=== PATIENT | female | born 1955 | race Caucasian/White ===

== ENCOUNTER 2019-05-29 12:08 | Outpatient (CLI) | payer MEDICARE, MEDICAID, SELFPAY ==
--- NOTE | 2019-05-29 12:21 | XR_ITS ---
WS: [id number] XR chest 2V* [id number] REASON FOR EXAM: sob / chronic cough FINDINGS: The heart mediastinum interfaces are normal. There is arteriosclerotic changes seen in the arch the aorta. Calcified granulomas are noted in the right mediastinum and the nodule in the apex of the right upper lung is calcified consistent with a granuloma. The lung noonan are well aerated. There is no definite pneumonia, pleural effusion, pulmonary edema, mass effect, are pneumothorax. The trachea is mildly narrowed at the level of the T4 vertebra. As above the bifurcation. XR/XR chest 2V* [id number] IMPRESSION: The trachea at the T4 level appears to be slightly narrowed. Granulomas are seen off the hilum and right upper lung.
== END 2019-05-29 12:09 | disposition home or self-care (01) ==
LOC: RAD 12:14
PROVIDERS: Family Provider Family Medicine; PCP Family Medicine; Visit Provider Family Medicine
DX: J84.10 Pulmonary fibrosis, unspecified (principal); R06.02 Shortness of breath; R05 Cough
CPT/HCPCS: 71046

== ENCOUNTER 2019-07-30 14:32 | Outpatient (CLI) | payer MEDICARE, MEDICAID, SELFPAY ==
--- NOTE | 2019-07-30 14:30 | CT_ITS ---
WS: [id number] CT CHEST WITH INTRAVENOUS CONTRAST HISTORY: chronic cough TECHNIQUE: Contiguous 5 mm axial imaging performed on the thorax. Coronal and sagittal reformats are submitted. All CT scans at [facility] use at least one of these dose optimization techniq ues: automated exposure control; mA and/or kV adjustment per patient size (includes targeted exams wh ere dose is matched to clinical indication); or iterative reconstruction. CONTRAST: Omnipaque 300; 95 mL IV. DLP: 865.07 mGycm COMPARISON: 10/17/2017 Lungs and central airway: No pulmonary mass or nodule. Very slight linear atelectasis in the RIGHT mi ddle lobe and along the RIGHT superior major fissure. Pleura: Normal. No pleural effusion. Heart and pericardium: Normal size heart. No pericardial effusion. Mediastinum and tisha: No enlarging lymph nodes. Benign calcified lymph nodes at the RIGHT hilum. Vessels: Normal size aortic and pulmonary artery. No coronary artery calcifications. Chest wall and lower neck: Prior LEFT mastectomy. No axillary lymph nodes. Upper abdomen: Extensive granulomatous changes in the liver and spleen have been stable over multiple prior studies. There is decreased attenuation in the liver from hepatic steatosis. No adrenal mass. Small hiatal hernia. Osseous structures: Mild degenerative changes in the thoracic spine. No osteoblastic or osteolytic shena ne disease. CT/CT chest w con* [id number] IMPRESSION: 1. No pneumonia or pulmonary nodules. 2. Subsegmental atelectasis at the RIGHT middle lobe and along the RIGHT major fissure. 3. Prior LEFT mastectomy. 4. Prior granulomatous disease with extensive calcifications in the liver and spleen. 5. Hepatic steatosis.
[2019-07-30 15:06] LABS: Blood Urea Nitrogen 12 mg/dL (8-23)
[2019-07-30] MEDS: iohexol 300 mg/mL 100 mL Btl IV (15:16)
== END 2019-07-30 14:33 | disposition home or self-care (01) ==
LOC: RADWPI 14:36
PROVIDERS: Family Provider Family Medicine; PCP Family Medicine; Visit Provider Family Medicine
DX: R05 Cough (principal); J98.11 Atelectasis; Z90.12 Acquired absence of left breast and nipple; K76.0 Fatty (change of) liver, not elsewhere classified
CPT/HCPCS: 71260; 82565; 84520; Q9967

== ENCOUNTER → 2019-08-20 11:15 | Outpatient (BNVA) | payer MEDICARE, MEDICAID, SELFPAY | PROVIDERS: Family Provider Family Medicine; PCP Family Medicine; Visit Provider Family Medicine | DX: Z13.6 Encounter for screening for cardiovascular disorders (principal); E55.9 Vitamin D deficiency, unspecified; K52.9 Noninfective gastroenteritis and colitis, unspecified; Z86.39 Personal history of other endocrine, nutritional and metabolic disease; F17.219 Nicotine dependence, cigarettes, with unspecified nicotine-induced disorders | CPT/HCPCS: 80053; 80061; 82306; 85025 ==

== ENCOUNTER → 2019-09-16 15:31 | Outpatient (BNVA) | payer MEDICARE, MEDICAID, SELFPAY | PROVIDERS: Family Provider Family Medicine; PCP Family Medicine; Visit Provider Family Medicine | DX: D64.9 Anemia, unspecified (principal) | CPT/HCPCS: 83540; 83550 ==

== ENCOUNTER 2020-06-23 14:20 | Emergency (ER) | payer MEDICARE, MEDICAID, SELFPAY ==
[2020-06-23 14:35] VITALS: BP 131/45; PULSE 78; RESP 19; TEMP 36.5; O2SAT 100; BMI 29.1
--- NOTE | 2020-06-23 15:02 | XR_ITS ---
WS: [id number] Portable AP upright chest, 06/23/2020 Clinical Data: reduced breath sounds Comparison: PA and lateral chest, 06/08/2019. Findings: No nodules, masses or effusions are seen. The heart is normal. The pulmonary vascularity is not increased. No pneumonia or pneumothorax is seen. There is a calcified granuloma in the right upp er lobe. There are calcified granulomas in both tisha. The aortic arch and descending aorta show calci fication and tortuosity. There is a monitor lead on the chest wall. XR/XR chest 1V portable [id number] Impression: Atherosclerosis.
--- NOTE | 2020-06-23 15:03 | ECG_ITS ---
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
[2020-06-23 15:50] VITALS: BP 127/47; PULSE 98; RESP 15; O2SAT 95
[2020-06-23 16:07] LABS: Basophils # 0.1 10^3/uL (0.0-0.1); Basophils % 0.4 %; Eosinophils # 0.1 10^3/uL (0.0-0.8); Eosinophils % 0.9 %; Hematocrit 40.1 % (37.0-47.0); Hemoglobin 12.3 g/dL (11.5-15.3); Lymphocytes % 14.7 %; Mean Corpuscular HGB Conc 30.7 g/dL (30.0-36.0); Mean Corpuscular Hemoglobin 24.9 pg (28.0-34.0); Mean Corpuscular Volume 81.2 fL (81-99); Mean Platelet Volume 10.6 fL (7.4-10.4); Monocytes # 0.6 10^3/uL (0.2-0.9); Monocytes % 4.3 %; Neutrophils % 79.4 %; Nucleated Red Blood Cells % 0 %; Platelet Count 457 10^3/cmm (130-400); Red Blood Count 4.94 10^6/uL (4.1-5.3); Red Cell Distribution Width 19.2 % (12.1-15.1); White Blood Count 13.6 10^3/uL (4.0-10.0)
[2020-06-23 16:22] LABS: Troponin(5th) Baseline 10 ng/L (0-10)
[2020-06-23 16:25] LABS: Alanine Aminotransferase 11 U/L (0-33); Albumin Level 4.5 g/dL (3.5-5.2); Alkaline Phosphatase 100 IU/L (35-105); Anion Gap 19.5 (5-19); Aspartate Amino Transferase 17 U/L (0-32); Blood Urea Nitrogen 12 mg/dL (8-23); Calcium 9.5 mg/dL (8.5-10.5); Carbon Dioxide 22 mmol/L (22-29); Chloride 102 mmol/L (98-107); Globulin 3.1 g/dL (1.3-4.6); Glomerular Filtration Rate 123.4 mL/min (90-130); Glucose 182 mg/dL (65-115); Lipase 77 U/L (13-60); Osmolality Calculated 292 mOsm/kg (285-295); Potassium 4.5 mmol/L (3.5-5.1); Sodium 139 mmol/L (136-145); Total Bilirubin 0.3 mg/dL (0.15-1.2); Total Protein 7.6 g/dL (6.6-8.7)
[2020-06-23] MEDS: ondansetron 2 mg/ML SDV 2 mL 4 MG IVP (16:46)
[2020-06-23] MEDS: sodium chloride 0.9% 1,000 ML 999 ML IV (16:47)
--- NOTE | 2020-06-23 17:13 | CTR_ITS ---
PROCEDURE INFORMATION: Exam: CT Abdomen And Pelvis With Contrast Exam date and time: 06/23/2020 5:14 PM Age: 65 years old Clinical indication: Abdominal pain; Prior surgery; Surgery type: Hyst/tubal TECHNIQUE: Imaging protocol: Computed tomography of the abdomen and pelvis with contrast. Radiation optimization: All CT scans at this facility use at least one of these dose optimization techniques: automated exposure control; mA and/or kV adjustment per patient size (includes targeted exams where dose is matched to clinical indication); or iterative reconstruction. Contrast material: OMNI 300; Contrast volume: 95 ml; Contrast route: INTRAVENOUS (IV); COMPARISON: No relevant prior studies available. RADIATION DOSE METRICS: Total DLP (mGy-cm): 1582.46 FINDINGS: Liver: Extensive calcified liver granulomas. No liver mass. No liver enlargement. Gallbladder and bile ducts: Normal. No calcified stones. No ductal dilation. Pancreas: Normal. No ductal dilation. Spleen: Extensive splenic granulomas. No splenomegaly. Adrenal glands: Normal. No mass. Kidneys and ureters: Incidental finding of small simple right renal lower pole partially exophytic cortical cyst. No hydronephrosis. No perinephric inflammation. Scattered left renal parenchymal calcifications. Stomach and bowel: Unremarkable. No obstruction. No mucosal thickening. Appendix: No evidence of appendicitis. Intraperitoneal space: Unremarkable. No free air. No significant fluid collection. Vasculature: Moderate volume scattered atherosclerotic wall plaque of abdominal aorta. No aneurysm. No dissection. No vascular occlusion. Lymph nodes: Unremarkable. No enlarged lymph nodes. Urinary bladder: Unremarkable as visualized. Reproductive: Hysterectomy. Bones/joints: Unremarkable. No acute fracture. Grade 1 L4-L5 spondylolisthesis secondary to facet joint arthritis. Moderate severity disc disease at L4-L5. Soft tissues: Unremarkable. CT/CT abdomen pelvis w con* [id number] IMPRESSION: 1. No acute pathology in the abdomen or pelvis identified. 2. Healed granulomatous disease. COMMENTS: Consistent with the [employer]'s Incidental Findings Committee white paper (J Am Tala Radiol 2018): Any incidental renal lesion less than 1 cm or classified as too small to characterize, or any incidental cystic renal lesion characterized as simple-appearing, is likely benign. No follow-up imaging is recommended for these lesions per consensus recommendations based on imaging criteria. Radiation Dose CTDIVOL = (mGy): DLP = 1582.46 (mGy-cm)
[2020-06-23] MEDS: iohexol 300 mg/mL 100 mL Btl IV (17:26)
[2020-06-23 17:38] LABS: Lactate (Lactic Acid level) 1.6 mmol/L (0.5-2.2)
--- NOTE | 2020-06-23 18:05 | ED_ITS ---
HPI - Nausea/Vomiting/Diarrhea General: Chief complaint: Nausea/Vomiting/Diarrhea Stated complaint: N/V/ WEAK Time Seen by Provider: 06/23/20 14:33 History of Present Illness: HPI Narrative: The patient is a 65-year-old female who comes to the ER complaining of nausea, vomiting, diarrhea, and abdominal cramping since last night. She was given 4 mg of Zofran by EMS which did help some. EMS reported that she was pale and diaphoretic on their arrival. When asked if she had bad food she says she cooked her food and left it out for 6 hours prior to eating it so she is concerned that that may be what is causing her food poisoning. MD elicited complaint: nausea, vomiting, diarrhea and abdominal pain Onset (ago): hour(s) (12) Description of vomiting: food contents Description of diarrhea: watery Associated nausea: Yes Associated abdominal pain: Yes Location of pain: Diffuse Radiation: diffuse Pain consistency: intermittent Severity: moderate Quality: cramping Exacerbating factors: eating Relieving factors: none Associated symtoms: Reports no associated symptoms and nausea; Denies anxiety, change in vision, chest pain, dizziness, fatigue, headache(s) or palpitations Review of Systems General: Reports: 10 or more systems reviewed and unremarkable except in HPI and below Const: Denies: fatigue Eyes: Denies: change in vision, blurry vision or eye redness ENMT: Denies: throat pain, swelling of lips/tongue, ear or mastoid pain or nasal congestion Card: Denies: chest pain, palpitations, irregular heart rhythm, edema, dyspnea on exertion or orthopnea Resp: Denies: dyspnea, productive cough or non-productive cough GI: Reports: abdominal pain, nausea, vomiting and diarrhea : Denies: flank pain, difficulty voiding, urinary frequency or urinary urgency Musc: Denies: neck pain, back pain, extremity pain, joint pain, joint redness, limited range of motion or muscle weakness Skin/Breast: Denies: rash, pruritus, erythema, skin pain or skin tenderness Neuro: Denies: headache(s), numbness in extremities, weakness in extremities, sensory changes, difficulty walking, dizziness, confusion or Slurred speech present Psych: Denies: anxiety or depression Endo: Denies: polyuria All/Imm: Denies: urticaria, throat swelling or tongue swelling PFSH ED PFSH: Medical History Breast cancer Chronic diarrhea DDD (degenerative disc disease), cervical Depression Essential hypertension GERD (gastroesophageal reflux disease) Hepatitis C Hyperlipidemia Surgical History H/O tubal ligation H/O: hysterectomy History of mastectomy, total History of thyroid surgery History of tonsillectomy Family History Other Cancer Social History Smoking and tobacco status: current every day smoker cigarettes Packs smoked per day: 0.5 Years cigarettes smoked: 25 Second hand smoke exposure: Yes Smoking risk assessment/counseling performed?: Yes Alcohol intake: never Lives independently: Yes Household members: significant other and family Marital status: Current occupational status: disabled History of recent travel: No Current gender identity: Female Physical Exam Const: COMMON NORMALS: no acute distress, average body habitus, patient oriented x3, no limitations, healthy appearing, alert and well nourished GENERAL APPEARANCE: cooperative, comfortable, well kempt and well developed ORIENTATION/CONSCIOUSNESS: Yes awake, Yes oriented to person, Yes oriented to place and Yes oriented to time HENMT: COMMON NORMALS: normocephalic, external ears normal and Normal external nose present HEAD & SCALP: normal to inspection and normocephalic NOSE: Normal external nose present EXTERNAL EAR: Yes external ears normal MOUTH: Normal oral and palatal mucosa present THROAT: posterior oropharynx normal Eye: COMMON NORMALS: Equal, round and reactive pupils present and EOMs intact bilaterally GENERAL EYE: appearance normal, both eyes and all related structures PUPIL: Yes Equal, round and reactive pupils present Neck/C-Spine: COMMON NORMALS: full ROM, no lymphadenopathy, no meningeal signs and no JVD GENERAL: Yes normal visual inspection Lymph: LYMPHATIC: no lymphadenopathy noted Chest: COMMONS NORMALS: normal inspection of the chest and normal palpation of entire chest wall Resp: COMMON NORMALS: normal respiratory effort, No retractions, No use of accessory muscles, clear to auscultation bilaterally and percussion normal EFFORT & INSPECTION: Yes able to speak in complete sentences AUSCULTATION: clear to auscultation bilaterally PERCUSSION: percussion normal Cardio: COMMON NORMALS: no JVD, regular rate, regular rhythm, S1 normal heart sound present, S2 normal heart sound present and Peripheral pulses 2+ throughout RATE: regular rate RHYTHM: regular rhythm HEART SOUNDS: S1 normal heart sound present and S2 normal heart sound present PERIPHERAL PULSES: Peripheral pulses 2+ throughout GI: COMMON NORMALS: Normal to inspection, nondistended, normoactive bowel sounds present, Soft to palpation and no masses INSPECTION: Yes normal to inspection PALPATION: Yes Soft to palpation OTHER: Mild tenderness diffusely. : COMMON NORMALS: Yes no CVA tenderness BLADDER/KIDNEY EXAM: Yes no CVA tenderness Back/Pelvis: COMMON NORMALS: no CVA tenderness, thoracic and lumbar spine normal to inspection, no thoracic nor lumbar tenderness and thoraco-lumbar ROM normal Extremity: COMMON NORMALS: normal to inspection, full ROM, capillary refill normal, no joint enlargement and no pedal edema GENERAL: Yes normal exam except as noted Neuro: COMMON NORMALS: patient oriented x3, CN's II-XII intact bilaterally, moves all extremities, no focal motor deficits, no sensory deficits noted and gait normal SENSORIUM/ORIENTATION: Yes alert, Yes oriented to person, Yes oriented to place and Yes oriented to time MENINGEAL SIGNS: Yes no meningeal signs Psych: COMMON NORMALS: mental status grossly normal, Normal thought process present, cooperative, normal affect and speech normal APPEARANCE: Yes well kempt ATTITUDE: Yes calm SPEECH: Yes normal speech THOUGHT PROCESS: Normal thought process present Skin: COMMON NORMALS: no rashes or lesions noted GENERAL SKIN EXAM: no rashes or lesions noted Course Vital Signs: Vital signs: Vital Signs Temperature 97.7 F 06/23/20 14:35 Pulse Rate 98 06/23/20 15:50 Respiratory Rate 15 06/23/20 15:50 Blood Pressure 127/47 06/23/20 15:50 Pulse Oximetry 95 06/23/20 15:50 MDM - Nausea/Vomiting/Diarrhea MDM Narrative: Medical decision making narrative: Patient came in with nausea vomiting and diarrhea since yesterday evening after eating food that had been sitting out for 6 hours. Likely food poisoning. She was given IV fluids, Zofran which helped with her symptoms. Mild leukocytosis as well. She is stable for discharge with oral Zofran. Return to the ER with worsening symptoms otherwise primary care doctor in a couple days. Lab Data: Labs: Lab Results 06/23/20 06/23/20 06/23/20 Range/Units 14:00 14:00 14:00 WBC 13.6 H (4.0-10.0) 10^3/ uL RBC 4.94 (4.1-5.3) 10^6/u L Hgb 12.3 (11.5-15.3) g/dL Hct 40.1 (37.0-47.0) % MCV 81.2 (81-99) fL MCH 24.9 L (28.0-34.0) pg MCHC 30.7 (30.0-36.0) g/dL RDW 19.2 H (12.1-15.1) % Plt Count 457 H (130-400) 10^3/c mm MPV 10.6 H (7.4-10.4) fL Neut % (Auto) 79.4 % Lymph % (Auto) 14.7 % [place] % (Auto) 4.3 % Eos % (Auto) 0.9 % Baso % (Auto) 0.4 % Neut # (Auto) 10.80 H (1.8-7.7) 10^3/u L Lymph # (Auto) 2.0 (0.8-4.8) 10^3/u L [place] # (Auto) 0.6 (0.2-0.9) 10^3/u L Eos # (Auto) 0.1 (0.0-0.8) 10^3/u L Baso # (Auto) 0.1 (0.0-0.1) 10^3/u L Nucleated RBC % (a uto) 0 % Nucleated RBCs # 0.0 /100WBC Sodium 139 (136-145) mmol/L Potassium 4.5 (3.5-5.1) mmol/L Chloride 102 (98-107) mmol/L Carbon Dioxide 22 (22-29) mmol/L Anion Gap 19.5 H (5-19) BUN 12 (8-23) mg/dL Creatinine 0.5 (0.5-0.9) mg/dL GFR Calculation 123.4 (90-130) mL/min Glucose 182 H (65-115) mg/dL Calculated Osmolal ity 292 (285-295) mOsm/k g Lactate (0.5-2.2) mmol/L Calcium 9.5 (8.5-10.5) mg/dL Total Bilirubin 0.3 (0.15-1.2) mg/dL AST 17 (0-32) U/L ALT 11 (0-33) U/L Alkaline Phosphata se 100 (35-105) IU/L Troponin T Baselin e 10 (0-10) ng/L Total Protein 7.6 (6.6-8.7) g/dL Albumin 4.5 (3.5-5.2) g/dL Globulin 3.1 (1.3-4.6) g/dL Lipase 77 H (13-60) U/L 06/23/20 Range/Units 17:00 WBC (4.0-10.0) 10^3/ uL RBC (4.1-5.3) 10^6/u L Hgb (11.5-15.3) g/dL Hct (37.0-47.0) % MCV (81-99) fL MCH (28.0-34.0) pg MCHC (30.0-36.0) g/dL RDW (12.1-15.1) % Plt Count (130-400) 10^3/c mm MPV (7.4-10.4) fL Neut % (Auto) % Lymph % (Auto) % [place] % (Auto) % Eos % (Auto) % Baso % (Auto) % Neut # (Auto) (1.8-7.7) 10^3/u L Lymph # (Auto) (0.8-4.8) 10^3/u L [place] # (Auto) (0.2-0.9) 10^3/u L Eos # (Auto) (0.0-0.8) 10^3/u L Baso # (Auto) (0.0-0.1) 10^3/u L Nucleated RBC % (a uto) % Nucleated RBCs # /100WBC Sodium (136-145) mmol/L Potassium (3.5-5.1) mmol/L Chloride (98-107) mmol/L Carbon Dioxide (22-29) mmol/L Anion Gap (5-19) BUN (8-23) mg/dL Creatinine (0.5-0.9) mg/dL GFR Calculation (90-130) mL/min Glucose (65-115) mg/dL Calculated Osmolal ity (285-295) mOsm/k g Lactate 1.6 (0.5-2.2) mmol/L Calcium (8.5-10.5) mg/dL Total Bilirubin (0.15-1.2) mg/dL AST (0-32) U/L ALT (0-33) U/L Alkaline Phosphata se (35-105) IU/L Troponin T Baselin e (0-10) ng/L Total Protein (6.6-8.7) g/dL Albumin (3.5-5.2) g/dL Globulin (1.3-4.6) g/dL Lipase (13-60) U/L Discharge Plan Discharge Patient Disposition: Home Clinical Impression: Food poisoning Condition: Stable Prescriptions: New ondansetron 4 mg tablet,disintegrating 4 mg PO Q8H 4 Days Qty: 12 RF: 0 No Action (DME) BRA WITH LEFT PROSTHESIS See Rx Instructions .Route .MEDSUPPLY Qty: 2 RF: 1 Spiriva Respimat 2.5 mcg/actuation mist 2 inh inhalation DAILY RF: 0 albuterol sulfate [ProAir HFA] 90 mcg/actuation HFA aerosol inhaler 2 puff INHALATION Q6H PRN (Reason: shortness of breath or wheezing) 30 Days Qty: 18 RF: 3 Discharge Orders: Discharge ED (Routine); Ordered 06/23/20 Ordered By: Fredrick Funes Referrals: Amee Bond DO [Primary Care Provider] - Discharge Diet: Advance as tolerated Discharge Activity: Resume usual activity Patient Instructions: Gastroenteritis (ED), Opioid Safety Activity Restrictions/Additional Instructions: You likely have food poisoning. Please take Zofran as directed to help with your nausea and return to the ER with worsening symptoms. Try to drink lots of fluids at home and use Zofran to help you do so. Throughout the rest of the food if you have not already done so. Follow-up with your primary care physician in a couple days to monitor improvement of your symptoms. Coding Level of Care Code ED Cook Fry for Xavi Fwd Exam Comprehensive
[2020-06-23 18:26] VITALS: BP 113/93; PULSE 89; RESP 16; O2SAT 97
== END 2020-06-23 18:27 | disposition home or self-care (01) ==
PROVIDERS: Emergency Provider Family Medicine; PCP Family Medicine
DX: A05.9 Bacterial foodborne intoxication, unspecified (principal); Z85.3 Personal history of malignant neoplasm of breast; I10 Essential (primary) hypertension; Z86.19 Personal history of other infectious and parasitic diseases; E78.5 Hyperlipidemia, unspecified; F17.210 Nicotine dependence, cigarettes, uncomplicated
CPT/HCPCS: 36415; 71045; 74177; 80053; 83605; 83690; 84484; 85025; 93005; 96361; 96374; 99284; J2405; J7030; Q9967

== ENCOUNTER → 2021-01-29 18:00 | Outpatient (BNVA) | payer MEDICARE, MEDICAID, SELFPAY | PROVIDERS: PCP Family Medicine; Visit Provider Nurse Practitioner | DX: Z20.822 Contact with and (suspected) exposure to COVID-19 (principal) | CPT/HCPCS: 87635 ==

== ENCOUNTER 2023-09-17 18:29 | Emergency (ER) | payer MEDICARE, MEDICAID, SELFPAY ==
--- NOTE | 2023-09-17 18:30 | XRR_ITS ---
PROCEDURE INFORMATION: Exam: XR Right Shoulder Exam date and time: 09/17/2023 6:42 PM Age: 68 years old Clinical indication: Pain; Shoulder; Right; Additional info: Injury TECHNIQUE: Imaging protocol: Radiologic exam of the right shoulder. Views: 2 or more views. COMPARISON: CR XR chest 1V portable [id number] 06/23/2020 3:06 PM FINDINGS: Bones/joints: Mild narrowing of the glenohumeral joint space with minimal subchondral sclerosis without significant osteophyte formation. There is mild narrowing of the acromiohumeral interval. No acute fracture or subluxation. Lungs: Benign calcified right upper lung granulomata. Soft tissues: Normal. XR/XR shoulder RT min 2V* [id number] IMPRESSION: 1. No acute fracture or subluxation. 2. Moderate chronic degenerative changes of the glenohumeral joint.
[2023-09-17 18:50] VITALS: BP 130/57; PULSE 80; RESP 16; TEMP 36.6; O2SAT 98
[2023-09-17 19:10] VITALS: BP 144/77; PULSE 77; RESP 16; O2SAT 97
--- NOTE | 2023-09-17 19:10 | ED_ITS ---
HPI - Extremity Problem General: Chief complaint: Extremity Injury, Upper Stated complaint: Right Shoulder Time Seen by Provider: 09/17/23 18:48 Source: patient Mode of arrival: ambulatory Limitations: no limitations History of Present Illness: 68-year-old female who states that she h ad injured her right shoulder a year ago trying to move her and she has been followed with her PCP who thought she may have a torn rotator cuff states she been doing physical therapy states she had been increasing with therapy last week did more exercise and felt a pop in that shoulder she does have some bruising increased pain rates the pain a 4 out of 10 worse with movement. Associated symptoms: Deny chest pain, fever(s) or rash Review of Systems Const: Denies: fever(s), chills, body aches or change in appetite ENMT: Denies: throat pain or dental pain Card: Denies: chest pain Resp: Denies: dyspnea GI: Denies: abdominal pain, nausea, vomiting or diarrhea Musc: Reports: extremity pain; Denies: neck pain or back pain Skin/Breast: Denies: rash Neuro: Denies: headache(s) PFSH ED PFSH: Medical History DDD (degenerative disc disease), cervical Depression Chronic diarrhea GERD (gastroesophageal reflux disease) Breast cancer Essential hypertension Hyperlipidemia Hepatitis C Surgical History H/O: hysterectomy History of tonsillectomy History of mastectomy, total H/O tubal ligation History of thyroid surgery Family History Other Cancer Social History Smoking and tobacco/nicotine status: never used tobacco/nicotine Second hand smoke exposure: Yes Alcohol intake: never Substance/Drug Use: never Lives independently: Yes Household members: significant other and family Marital status: Current occupational status: disabled Do you think of yourself as: Straight/Heterosexual Current gender identity: Female Physical Exam Const: COMMON NORMALS: no acute distress, patient oriented x3 and healthy appearing HENMT: COMMON NORMALS: normocephalic and atraumatic HEAD & SCALP: normocephalic and atraumatic Eye: COMMON NORMALS: conjunctivae normal CONJUNCTIVA: Yes conjunctivae normal Neck/C-Spine: COMMON NORMALS: full ROM Chest: COMMONS NORMALS: normal inspection of the chest Resp: COMMON NORMALS: normal respiratory effort Cardio: COMMON NORMALS: regular rate RATE: regular rate Extremity: NARRATIVE EXTREMITY EXAM: Tenderness noted to right shoulder does have some slight bruising of the shoulder distal pulses intact Neuro: COMMON NORMALS: patient oriented x3, moves all extremities and no focal motor deficits Psych: COMMON NORMALS: mental status grossly normal, Normal thought process present and cooperative THOUGHT PROCESS: Normal thought process present Skin: COMMON NORMALS: no rashes or lesions noted and no wounds GENERAL SKIN EXAM: no rashes or lesions noted Course Vital Signs: Vital signs: Vital Signs Temperature 97.8 F 09/17/23 18:50 Pulse Rate 77 09/17/23 19:10 Respiratory Rate 16 09/17/23 19:10 Blood Pressure 144/77 09/17/23 19:10 Pulse Oximetry 97 09/17/23 19:10 Oxygen Delivery Me thod Room Air 09/17/23 19:10 MDM - Extremity (Nontraumatic) Medical Decision Making Patient presents here with right shoulder pain her exam showed no signs of blood clot distal pulses were intact here x-ray shows no fracture she could have a rotator cuff injury we will get her follow-up with orthopedics return if worsening. XR interpretation done by ED provider, pending radiology final review ED provider radiology interpretation(s): X-ray right shoulder no acute fracture Discharge Plan Discharge Patient Disposition: Home Clinical Impression: Right shoulder pain Condition: Stable Prescriptions: No Action (DME) BRA WITH LEFT PROSTHESIS See Rx Instructions .Route .MEDSUPPLY Qty: 2 1RF Rx Instructions: As directed Spiriva Respimat 2.5 mcg/actuation mist 2 inh inhalation DAILY albuterol sulfate [ProAir HFA] 90 mcg/actuation HFA aerosol inhaler 2 puff INHALATION Q6H PRN (Reason: shortness of breath or wheezing) 30 Days Qty: 18 3RF Discharge Orders: Discharge ED (Routine); Ordered 09/17/23 Ordered By: Dylan Bear Referrals: Robert Alonzo MD [Primary Care Provider] - Yeni Azul MD [Physician] - 4-7 days Discharge Diet: Advance as tolerated Discharge Activity: Resume usual activity Patient Instructions: Shoulder Sprain (ED) Coding Level of Care Code ED Hydroelectric Machinery Mechanic for Xavi Malhotra
[2023-09-17] MEDS: naproxen 500 mg Tablet PO (19:12)
--- NOTE | 2023-09-18 11:35 | DCPLANNER ---
message sent to ortho for er f/u
== END 2023-09-17 19:38 | disposition home or self-care (01) ==
PROVIDERS: Emergency Provider Emergency Medicine; PCP Family Medicine
DX: M25.511 Pain in right shoulder (principal); Z85.3 Personal history of malignant neoplasm of breast; I10 Essential (primary) hypertension; E78.5 Hyperlipidemia, unspecified; Z86.19 Personal history of other infectious and parasitic diseases; Z77.22 Contact with and (suspected) exposure to environmental tobacco smoke (acute) (chronic)
CPT/HCPCS: 73030; 99283

== ENCOUNTER 2023-10-17 09:20 | Outpatient (CLI) | payer MEDICARE, MEDICAID, SELFPAY ==
--- NOTE | 2023-10-17 09:23 | MR_ITS ---
WS: [id number] MRI RIGHT SHOULDER NONCONTRAST TECHNIQUE: Sagittal T2, coronal T1, T2 and proton density imaging. Axial gradient PDE imaging. CLINICAL INFORMATION: R SHOULDER TENDINITIS COMPARISON: MRI 2014 FINDINGS: Advanced degenerative arthritis AC joint with near complete loss of the subacromial space. Small amou nt of fluid and edema at the AC joint. Small amount of subacromial subdeltoid fluid. Cystic degenerat humza changes of the greater tuberosity with dominant subchondral cystic lesion measuring 1.6 x 1.1 cm is likely degenerative cyst. High-grade complete tear of the supraspinatus with retraction to the glenohumeral joint. Chronic appe aring high-grade tear of the infraspinatus with some intact fibers dorsally with tendinopathy. Teres minor appears intact. Subscapularis appears intact with intrasubstance tear and tendinopathy. Biceps tendon appears absent from the proximal bicipital groove. This is new from previous. Chronic appearing tear of the intra-ar ticular biceps tendon with tiny remnant. Advanced degenerative narrowing glenohumeral articulation. MR/MR shoulder RT wo con* [id number] IMPRESSION: 1. Progressed advanced degenerative narrowing of the AC joint with near comple te loss of the subacromial space 2. Complete tear of the supraspinatus with retraction to the glenohumeral join t. High-grade tear of the infraspinatus with some intact fibers dorsally with t endinopathy. 3. Teres minor appears intact. 4. Tendinopathy with intrasubstance tear involving the subscapularis. 5. Biceps tendon is absent from the proximal bicipital groove which appears ne w from previous. Distal extracapsular biceps tendon appears intact. 6. Tiny remnant intra-articular biceps tendon
== END 2023-10-17 09:21 | disposition home or self-care (01) ==
LOC: RAD 09:21
PROVIDERS: Absent Provider Specialist; PCP Family Medicine; Visit Provider Family Medicine
DX: M75.121 Complete rotator cuff tear or rupture of right shoulder, not specified as traumatic (principal); M19.011 Primary osteoarthritis, right shoulder; M75.101 Unspecified rotator cuff tear or rupture of right shoulder, not specified as traumatic
CPT/HCPCS: 73221

== ENCOUNTER 2023-10-28 10:35 | Outpatient (CLI) | payer MEDICARE, MEDICAID, SELFPAY ==
--- NOTE | 2023-10-28 10:40 | CT_ITS ---
WS: [id number] LDCT LUNG CANCER SCREENING TECHNIQUE: Noncontrast CT of the chest with coronal and sagittal reformatted images. CLINICAL INFORMATION: HX OF TOBACCO USE COMPARISON: CT chest 2019 DLP: 42.50 mGy.cm DIvol: Mean CTDIvol: 0.70 (mGy) All CT scans at [facility] use at least one of these dose optimization techniques: automat ed exposure control; mA and/or kV adjustment per patient size (includes targeted exams where dose is matched to clinical indication); or iterative reconstruction. FINDINGS: Bilateral calcified granulomas largest in the RIGHT upper lobe. 6 mm noncalcified nodule RI GHT upper lobe anteriorly. Recommend 6-month follow-up. 3 mm noncalcified nodule RIGHT middle lobe. Evidence of prior LEFT mastectomy. Normal caliber thoracic aorta. Calcified mediastinal and RIGHT hil ar lymph nodes. Calcified subcarinal lymph nodes. Prior LEFT mastectomy. No axillary lymphadenopathy. Innumerable calcified hepatic and splenic granulomas. This is unchanged since the prior studies. Mild thoracic kyphosis. Hypertrophic changes thoracic spine. CT/CT lung screening [id number] IMPRESSION: LUNG-RADS: 3-Probably Benign FOLLOW UP: 6 Month LDCT
== END 2023-10-28 10:36 | disposition home or self-care (01) ==
LOC: RAD 10:37
PROVIDERS: PCP Family Medicine; Visit Provider Family Medicine
DX: Z87.891 Personal history of nicotine dependence (principal); Z12.2 Encounter for screening for malignant neoplasm of respiratory organs
CPT/HCPCS: 71271

== ENCOUNTER → 2023-11-04 08:00 | Outpatient (BNVA) | payer MEDICARE, MEDICAID, SELFPAY | PROVIDERS: PCP Family Medicine; Visit Provider Specialist | DX: M12.811 Other specific arthropathies, not elsewhere classified, right shoulder (principal) | CPT/HCPCS: 20610; 99205; J1100; J2795; J3301 ==

== ENCOUNTER → 2024-01-30 14:09 | Outpatient (BNVA) | payer MEDICARE, MEDICAID, SELFPAY | PROVIDERS: PCP Family Medicine; Visit Provider Specialist | DX: M19.011 Primary osteoarthritis, right shoulder (principal); Z71.89 Other specified counseling | CPT/HCPCS: 20610; J1100; J2795; J3301 ==

== ENCOUNTER → 2024-04-28 09:32 | Outpatient (BNVA) | payer MEDICARE, MEDICAID, SELFPAY | PROVIDERS: PCP Family Medicine; Visit Provider Surgery | DX: L89.159 Pressure ulcer of sacral region, unspecified stage (principal) | CPT/HCPCS: 99204 ==

== ENCOUNTER → 2024-05-04 08:07 | Outpatient (BNVA) | payer MEDICARE, MEDICAID, SELFPAY | PROVIDERS: PCP Family Medicine; Visit Provider Thoracic Surgery (Cardiothoracic Vascular Surgery) | DX: I96 Gangrene, not elsewhere classified (principal); L89.153 Pressure ulcer of sacral region, stage 3 | CPT/HCPCS: 11042; 99203; A6212 ==

== ENCOUNTER → 2024-05-08 10:41 | Outpatient (BNVA) | payer MEDICARE, MEDICAID, SELFPAY | PROVIDERS: PCP Family Medicine; Visit Provider Specialist | DX: M19.011 Primary osteoarthritis, right shoulder (principal); Z71.89 Other specified counseling | CPT/HCPCS: 20610; J1100; J2795; J3301 ==

== ENCOUNTER → 2024-05-11 08:27 | Outpatient (BNVA) | payer MEDICARE, MEDICAID, SELFPAY | PROVIDERS: PCP Family Medicine; Visit Provider Thoracic Surgery (Cardiothoracic Vascular Surgery) | DX: I96 Gangrene, not elsewhere classified (principal); L89.153 Pressure ulcer of sacral region, stage 3 | CPT/HCPCS: 11042; A6212 ==

== ENCOUNTER → 2024-05-18 08:20 | Outpatient (BNVA) | payer MEDICARE, MEDICAID, SELFPAY | PROVIDERS: PCP Family Medicine; Visit Provider Thoracic Surgery (Cardiothoracic Vascular Surgery) | DX: I96 Gangrene, not elsewhere classified (principal); L89.152 Pressure ulcer of sacral region, stage 2 | CPT/HCPCS: 11042 ==

== ENCOUNTER → 2024-05-25 08:26 | Outpatient (BNVA) | payer MEDICARE, MEDICAID, SELFPAY | PROVIDERS: PCP Family Medicine; Visit Provider Thoracic Surgery (Cardiothoracic Vascular Surgery) | DX: I96 Gangrene, not elsewhere classified (principal); L89.152 Pressure ulcer of sacral region, stage 2 | CPT/HCPCS: 11042; A6021; A6248 ==

== ENCOUNTER → 2024-06-01 08:20 | Outpatient (BNVA) | payer MEDICARE, MEDICAID, SELFPAY | PROVIDERS: PCP Family Medicine; Visit Provider Thoracic Surgery (Cardiothoracic Vascular Surgery) | DX: I96 Gangrene, not elsewhere classified (principal); L89.152 Pressure ulcer of sacral region, stage 2 | CPT/HCPCS: 11042; A6021; A6248 ==

== ENCOUNTER → 2024-06-15 08:11 | Outpatient (BNVA) | payer MEDICARE, MEDICAID, SELFPAY | PROVIDERS: PCP Family Medicine; Visit Provider Thoracic Surgery (Cardiothoracic Vascular Surgery) | DX: I96 Gangrene, not elsewhere classified (principal); L89.152 Pressure ulcer of sacral region, stage 2 | CPT/HCPCS: 97597; A6021; A6248 ==

== ENCOUNTER → 2024-06-22 08:23 | Outpatient (BNVA) | payer MEDICARE, MEDICAID, SELFPAY | PROVIDERS: PCP Family Medicine | DX: I96 Gangrene, not elsewhere classified (principal); L89.152 Pressure ulcer of sacral region, stage 2 | CPT/HCPCS: 97597; A6212 ==

== ENCOUNTER → 2024-06-29 08:53 | Outpatient (BNVA) | payer MEDICARE, MEDICAID, SELFPAY | PROVIDERS: PCP Family Medicine; Visit Provider Thoracic Surgery (Cardiothoracic Vascular Surgery) | DX: I96 Gangrene, not elsewhere classified (principal); L89.152 Pressure ulcer of sacral region, stage 2 | CPT/HCPCS: 97597; A6212 ==

== ENCOUNTER → 2024-07-06 08:19 | Outpatient (BNVA) | payer MEDICARE, MEDICAID, SELFPAY | PROVIDERS: PCP Family Medicine; Visit Provider Thoracic Surgery (Cardiothoracic Vascular Surgery) | DX: I96 Gangrene, not elsewhere classified (principal); L89.152 Pressure ulcer of sacral region, stage 2 | CPT/HCPCS: 97597; A6212 ==

== ENCOUNTER 2024-07-10 15:22 | Outpatient (CLI) | payer MEDICARE, MEDICAID, SELFPAY ==
[2024-07-10 15:46] LABS: Basophils # 0.1 10^3/uL (0.0-0.1); Basophils % 0.5 %; Eosinophils # 0.1 10^3/uL (0.0-0.8); Eosinophils % 0.7 %; Hematocrit 44.6 % (36-47); Lymphocytes # 3.3 10^3/uL (0.8-4.8); Lymphocytes % 32.3 %; Mean Corpuscular HGB Conc 32.5 g/dL (30-55); Mean Corpuscular Hemoglobin 30.8 pg (27-33); Mean Corpuscular Volume 94.7 fl (85-98); Mean Platelet Volume 9.7 fL (7.4-10.4); Monocytes # 0.7 10^3/uL (0.2-0.9); Monocytes % 6.4 %; Neutrophils # 6.15 10^3/uL (1.8-7.7); Neutrophils % 59.8 %; Nucleated Red Blood Cells % 0 %; Platelet Count 315 10^3/cmm (157-399); Red Blood Count 4.71 10^6/uL (3.85-5.65); White Blood Count 10.28 10^3/uL (3.29-11.43)
[2024-07-10 16:25] LABS: Alanine Aminotransferase 14 U/L (0-33); Albumin Level 4.5 g/dL (3.5-5.2); Alkaline Phosphatase 73 U/L (35-105); Anion Gap 18.7 (5-19); Aspartate Amino Transferase 24 U/L (0-32); Blood Urea Nitrogen 12 mg/dL (8-23); Calcium 9.9 mg/dL (8.5-10.5); Carbon Dioxide 26 mmol/L (22-29); Chloride 99 mmol/L (98-107); Globulin 3.6 g/dL (1.3-4.6); Glomerular Filtration Rate 98.8 mL/min (90-130); Glucose 115 mg/dL (65-115); Magnesium 1.7 mg/dL (1.7-2.3); Osmolality Calculated 291 mOsm/kg (285-295); Phosphorus 3.2 mg/dL (2.5-4.5); Potassium 3.7 mmol/L (3.5-5.1); Prealbumin 24.3 mg/dL (20-40); Sodium 140 mmol/L (136-145); Total Bilirubin 0.3 mg/dL (0.15-1.2); Total Protein 8.1 g/dL (6.6-8.7)
== END 2024-07-10 15:23 | disposition home or self-care (01) ==
LOC: LAB 15:24
PROVIDERS: PCP Family Medicine; Visit Provider Thoracic Surgery (Cardiothoracic Vascular Surgery)
DX: L89.159 Pressure ulcer of sacral region, unspecified stage (principal)
CPT/HCPCS: 80053; 83735; 84100; 84134; 85025

== ENCOUNTER → 2024-07-13 08:31 | Outpatient (BNVA) | payer MEDICARE, MEDICAID, SELFPAY | PROVIDERS: PCP Family Medicine; Visit Provider Thoracic Surgery (Cardiothoracic Vascular Surgery) | DX: I96 Gangrene, not elsewhere classified (principal); L89.152 Pressure ulcer of sacral region, stage 2 | CPT/HCPCS: 97597; A6213 ==

== ENCOUNTER → 2024-07-20 08:21 | Outpatient (BNVA) | payer MEDICARE, MEDICAID, SELFPAY | PROVIDERS: PCP Family Medicine; Visit Provider Thoracic Surgery (Cardiothoracic Vascular Surgery) | DX: I96 Gangrene, not elsewhere classified (principal); L89.152 Pressure ulcer of sacral region, stage 2 | CPT/HCPCS: 97597 ==

== ENCOUNTER → 2024-08-05 10:08 | Outpatient (BNVA) | payer MEDICARE, MEDICAID, SELFPAY | PROVIDERS: PCP Family Medicine; Visit Provider Thoracic Surgery (Cardiothoracic Vascular Surgery) | DX: I96 Gangrene, not elsewhere classified (principal); L89.152 Pressure ulcer of sacral region, stage 2 | CPT/HCPCS: 97597 ==

== ENCOUNTER → 2024-08-07 08:58 | Outpatient (BNVA) | payer MEDICARE, MEDICAID, SELFPAY | PROVIDERS: PCP Family Medicine; Visit Provider Specialist | DX: M19.011 Primary osteoarthritis, right shoulder (principal) | CPT/HCPCS: 20610 ==

== ENCOUNTER → 2024-08-10 10:15 | Outpatient (BNVA) | payer MEDICARE, MEDICAID, SELFPAY | PROVIDERS: PCP Family Medicine; Visit Provider Thoracic Surgery (Cardiothoracic Vascular Surgery) | DX: I96 Gangrene, not elsewhere classified (principal); L89.152 Pressure ulcer of sacral region, stage 2 | CPT/HCPCS: 97597; J1100; J2795; J3301; J9999 ==

== ENCOUNTER → 2024-08-17 08:22 | Outpatient (BNVA) | payer MEDICARE, MEDICAID, SELFPAY | PROVIDERS: PCP Family Medicine; Visit Provider Thoracic Surgery (Cardiothoracic Vascular Surgery) | DX: I96 Gangrene, not elsewhere classified (principal); L89.152 Pressure ulcer of sacral region, stage 2 | CPT/HCPCS: 97597 ==

== ENCOUNTER → 2024-08-26 13:35 | Outpatient (BNVA) | payer MEDICARE, MEDICAID, SELFPAY | PROVIDERS: PCP Family Medicine; Visit Provider Specialist | DX: M19.012 Primary osteoarthritis, left shoulder (principal) | CPT/HCPCS: 20610; 73030; 99214; J1100; J2795; J3301; J9999 ==

== ENCOUNTER → 2024-09-07 14:22 | Outpatient (BNVA) | payer MEDICARE, MEDICAID, SELFPAY | PROVIDERS: PCP Family Medicine; Visit Provider Thoracic Surgery (Cardiothoracic Vascular Surgery) | DX: I96 Gangrene, not elsewhere classified (principal); L89.152 Pressure ulcer of sacral region, stage 2 | CPT/HCPCS: 97597 ==

== ENCOUNTER 2024-09-18 19:49 | Emergency (ER) | payer MEDICARE, MEDICAID, SELFPAY ==
--- OUTSIDE RECORDS SUMMARY | 2024-09-18 19:53 | XMS_ITS | Encounter Summary ---
Author Organization [facility] Address [address] [place] [address] Care Team Providers Care Wash Test Checker Name Role Phone Marlon Trejo MD Primary Care Provider Encounter Details Date Type Department Care Team (Latest Contact Info) Description 04/21/1998 Outpatient Historical [facility] Deny Castillo Jr., MD [address] [place] [address] Myalgia and myositis, unspecified (Primary Dx) Social History Tobacco Use Types Packs/Day Years Used Date Smoking Tobacco: Never Assessed Comments Unknown Sex and Gender Information Value Date Recorded Sex Assigned at Not on file Legal Sex Female 6:03 AM 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
--- OUTSIDE RECORDS SUMMARY | 2024-09-18 19:53 | XMS_ITS | Encounter Summary ---
Author Organization [facility] [facility] Address [address] [place] [address] Care Team Providers Care Staff Interpreter Name Role Phone Marlon Trejo MD Primary Care Provider Encounter Details Date Type Department Care Team (Latest Contact Info) Description 04/25/2006 Outpatient Historical [facility] Lisa Laughlin FNP NO ADDRESS ON FILE Chronic Hepatitis C without Mention of Hepatic Coma (CMS/HCC) (Primary Dx) Social History Tobacco Use Types Packs/Day Years Used Date Smoking Tobacco: Never Assessed Comments Unknown Sex and Gender Information Value Date Recorded Sex Assigned at Not on file Legal Sex Female 6:03 AM 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
--- OUTSIDE RECORDS SUMMARY | 2024-09-18 19:53 | XMS_ITS | Clinical Summary ---
Author Organization [email or web address] Address [address] 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 Gender Identity Not on file Sexual Orientation Not on file Plan of Treatment Health Maintenance Due Date Last Done Comments BREAST CANCER SCREENING 1994 COLORECTAL SCREENING 1999 Colorectal Cancer Screening 1999 FIT-DNA Q 3 years 1999 FIT/FOBT Q 1 year 1999 Flex Sig/CT Colonography Q 5 years 1999 PNEUMOCOCCAL VACCINE 50+ YEA RS (1 of 1 - PCV) 2004 ZOSTER VACCINE (1 of 2) 2004 DTAP/TDAP/TD VACCINES (1 - Tdap) 01/23/2006 01/23/20 06, 01/26/1999 OSTEOPOROSIS SCREENING 2019 INFLUENZA VACCINE (#1) 2024 RSV VACCINE (60+ or ) (1 - 1-dose 75+ series) 2029 Care Teams Color Paste Mixer Relationship Specialty Start Date End Date Marlon Trejo MD [address] [place] [address] PCP - General 12/11/05
--- OUTSIDE RECORDS SUMMARY | 2024-09-18 19:53 | XMS_ITS | Encounter Summary ---
Author Organization [employer] [facility] Address [address] [place] [address] Care Team Providers Care Steamfitter Supervisor Name Role Phone Marlon Trejo MD Primary Care Provider Encounter Details Date Type Department Care Team (Latest Contact Info) Description 07/28/1998 Outpatient Historical [facility] Deny Castillo Jr., MD [address] [place] [phone] Myalgia and myositis, unspecified (Primary Dx); Depressive disorder, not elsewhere classified Social History Tobacco Use Types Packs/Day Years Used Date Smoking Tobacco: Never Assessed Comments Unknown Sex and Gender Information Value Date Recorded Sex Assigned at Not on file 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
--- OUTSIDE RECORDS SUMMARY | 2024-09-18 19:53 | XMS_ITS | Encounter Summary ---
Author Organization [facility] Address [address] [place] [address] Care Team Providers Care Lithographic Stripper Name Role Phone Marlon Trejo MD Primary Care Provider Encounter Details Date Type Department Care Team (Latest Contact Info) Description 12/11/2005 Outpatient Historical [facility] [place] [address] [place] [address] Ludwin Cotter MD [address] [place] [address] [place] [address] Chronic Hepatitis C without Mention of Hepatic Coma (CMS/HCC) (Primary Dx) Social History Tobacco Use Types Packs/Day Years Used Date Smoking Tobacco: Never Assessed Comments Unknown Sex and Gender Information Value Date Recorded Sex Assigned at Not on file Legal Sex Female 6:03 AM DIRECTOR CRAFT CENTER Gender Identity Not on file Sexual Orientation Not on file documented as of this encounter Plan of Treatment Not on file documented as of this encounter Visit Diagnoses Diagnosis Chronic hepatitis C without mention of hepatic coma (CMS/HCC)- Primary Chronic hepatitis C without mention of hepatic coma documented in this encounter Care Teams Lithographic Stripper Relationship Specialty Start Date End Date Marlon Trejo MD [address] [place] [address] PCP - General 12/11/05 documented as of this encounter
--- OUTSIDE RECORDS SUMMARY | 2024-09-18 19:53 | XMS_ITS | Encounter Summary ---
Author Organization [facility] Address [address] [place] [address] Care Team Providers Care Molecular Technologist Name Role Phone Marlon Trejo MD Primary Care Provider Encounter Details Date Type Department Care Team (Latest Contact Info) Description 02/06/2006 Outpatient Historical [facility]- [place] [address] [place] [address] Ludwin Cotter MD [address] [place] [address] [place] [address] Chronic Hepatitis C without Mention of Hepatic Coma (CMS/HCC) (Primary Dx) Social History Tobacco Use Types Packs/Day Years Used Date Smoking Tobacco: Never Assessed Comments Unknown Sex and Gender Information Value Date Recorded Sex Assigned at Not on file Legal Sex Female 6:03 AM 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
--- OUTSIDE RECORDS SUMMARY | 2024-09-18 19:53 | XMS_ITS | Encounter Summary ---
Author Organization [employer] [facility] Address [address] [place] [address] Care Team Providers Care Medicaid Analyst Name Role Phone Marlon Trejo MD Primary Care Provider Encounter Details Date Type Department Care Team (Latest Contact Info) Description 05/22/2006 Outpatient Historical [facility] Lisa Laughlin FNP NO ADDRESS ON FILE Chronic Hepatitis C without Mention of Hepatic Coma (CMS/HCC) (Primary Dx) Social History Tobacco Use Types Packs/Day Years Used Date Smoking Tobacco: Never Assessed Comments Unknown Sex and Gender Information Value Date Recorded Sex Assigned at Not on file Legal Sex Female 6:03 AM SOFTWARE QUALITY TESTER Gender Identity Not on file Sexual Orientation Not on file documented as of this encounter Plan of Treatment Not on file documented as of this encounter Visit Diagnoses Diagnosis Chronic hepatitis C without mention of hepatic coma (CMS/HCC)- Primary Chronic hepatitis C without mention of hepatic coma documented in this encounter Care Teams Medicaid Analyst Relationship Specialty Start Date End Date Marlon Trejo MD [address] [place] [address] PCP - General 12/11/05 documented as of this encounter
--- OUTSIDE RECORDS SUMMARY | 2024-09-18 19:53 | XMS_ITS ---
Author Organization Unknown Problems Date Problem Result OnSetDate [id number] SnomedCode Severity Cu stom 10/01/2023 12:00:00 AM Chronic diarrhea 10/01/2023 12:00:00 AM [id number] 03/26/2024 12:00:00 AM Chronic obstructive pulmonary disease 03/26/2024 12:00:00 AM [id number] 07/15/2024 12:00:00 AM Pain of left shoulder region 07/15/2024 12:00:00 AM [id number] 03/25/2024 12:00:00 AM Insomnia 03/25/2024 12:00:00 AM [id number] 09/24/2023 12:00:00 AM Onychomycosis of toenails 09/24/2023 12:00:00 AM [id number] 10/25/2023 12:00:00 AM Full thickness rotator cuff tear 10/25/2023 12:00:00 AM [id number] 03/25/2024 12:00:00 AM Abscess of skin and/or subcutaneous tissue 03/25/2024 12:00:00 AM [id number]
--- OUTSIDE RECORDS SUMMARY | 2024-09-18 19:53 | XMS_ITS | Encounter Summary ---
Author Organization [employer] [facility] Address [address] [place] [address] Care Team Providers Care Spring Fitter Helper Name Role Phone Marlon Trejo MD Primary Care Provider [phone] Encounter Details Date Type Department Care Team (Latest Contact Info) Description 08/27/2001 Outpatient Historical [facility] Samson Ribeiro MD [address] [place] [phone] DEPRESSIVE DISORDER NEC (Primary Dx) Social History Tobacco Use Types Packs/Day Years Used Date Smoking Tobacco: Never Assessed Comments Unknown Sex and Gender Information Value Date Recorded Sex Assigned at Not on file Legal Sex Female 6:03 AM BUSINESS ADVISOR Gender Identity Not on file Sexual Orientation Not on file documented as of this encounter Plan of Treatment Not on file documented as of this encounter Visit Diagnoses Diagnosis Depressive disorder, not elsewhere classified- Primary documented in this encounter Care Teams Spring Fitter Helper Relationship Specialty Start Date End Date Marlon Trejo MD [address] [place] [phone] PCP - General 12/11/05 documented as of this encounter
--- OUTSIDE RECORDS SUMMARY | 2024-09-18 19:53 | XMS_ITS | Encounter Summary ---
Author Organization [employer] [facility] Address [address] [place] [address] Care Team Providers Care Mortgage Loan Reviewer Name Role Phone Marlon Trejo MD Primary Care Provider Encounter Details Date Type Department Care Team (Latest Contact Info) Description 07/18/2006 Outpatient Historical [facility] Lisa Laughlin FNP NO ADDRESS ON FILE Chronic Hepatitis C without Mention of Hepatic Coma (CMS/HCC) (Primary Dx) Social History Tobacco Use Types Packs/Day Years Used Date Smoking Tobacco: Never Assessed Comments Unknown Sex and Gender Information Value Date Recorded Sex Assigned at Not on file Legal Sex Female 6:03 AM FITTER HAND Gender Identity Not on file Sexual Orientation Not on file documented as of this encounter Plan of Treatment Not on file documented as of this encounter Visit Diagnoses Diagnosis Chronic hepatitis C without mention of hepatic coma (CMS/HCC)- Primary Chronic hepatitis C without mention of hepatic coma documented in this encounter Care Teams Mortgage Loan Reviewer Relationship Specialty Start Date End Date Marlon Trejo MD [address] [place] [address] PCP - General 12/11/05 documented as of this encounter
--- OUTSIDE RECORDS SUMMARY | 2024-09-18 19:53 | XMS_ITS | Encounter Summary ---
Author Organization [facility] Address [address] [place] [address] Care Team Providers Care Service Cashier Name Role Phone Marlon Trejo MD Primary Care Provider Encounter Details Date Type Department Care Team (Latest Contact Info) Description 12/11/2005 Outpatient Historical [facility] [address] [place] [address] Ludwin Cotter MD [address] [place] [address] Dr [address] [place] [phone] Chronic Hepatitis C without Mention of Hepatic Coma (CMS/HCC) (Primary Dx) Social History Tobacco Use Types Packs/Day Years Used Date Smoking Tobacco: Never Assessed Comments Unknown Sex and Gender Information Value Date Recorded Sex Assigned at Not on file Legal Sex Female 6:03 AM 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
--- OUTSIDE RECORDS SUMMARY | 2024-09-18 19:53 | XMS_ITS | Encounter Summary ---
Author Organization [employer] [facility] Address [address] [place] [address] Care Team Providers Care Locomotive Firer Name Role Phone Marlon Trejo MD Primary Care Provider Encounter Details Date Type Department Care Team (Latest Contact Info) Description 06/19/2006 Outpatient Historical [facility] Lisa Laughlin FNP NO ADDRESS ON FILE Chronic Hepatitis C without Mention of Hepatic Coma (CMS/HCC) (Primary Dx); Unspecified Anemia Social History Tobacco Use Types Packs/Day Years Used Date Smoking Tobacco: Never Assessed Comments Unknown Sex and Gender Information Value Date Recorded Sex Assigned at Not on file Legal Sex Female 6:03 AM BIOINFORMATICS ASSISTANT Gender Identity Not on file Sexual Orientation Not on file documented as of this encounter Plan of Treatment Not on file documented as of this encounter Visit Diagnoses Diagnosis Chronic hepatitis C without mention of hepatic coma (CMS/HCC)- Primary Chronic hepatitis C without mention of hepatic coma Anemia, unspecified documented in this encounter Care Teams Locomotive Firer Relationship Specialty Start Date End Date Marlon Trejo MD [address] [place] [phone] PCP - General 12/11/05 documented as of this encounter
--- OUTSIDE RECORDS SUMMARY | 2024-09-18 19:53 | XMS_ITS | Encounter Summary ---
Author Organization [employer] [facility] Address [address] [place] [address] Care Team Providers Care Territory Sales Consultant Name Role Phone Marlon Trejo MD Primary Care Provider [phone] Encounter Details Date Type Department Care Team (Latest Contact Info) Description 10/10/2006 Outpatient Historical [facility] Lisa Laughlin FNP NO ADDRESS ON FILE Chronic Hepatitis C without Mention of Hepatic Coma (CMS/HCC) (Primary Dx) Social History Tobacco Use Types Packs/Day Years Used Date Smoking Tobacco: Never Assessed Comments Unknown Sex and Gender Information Value Date Recorded Sex Assigned at Not on file Legal Sex Female 6:03 AM CLIENT ENGAGEMENT SPECIALIST Gender Identity Not on file Sexual Orientation Not on file documented as of this encounter Plan of Treatment Not on file documented as of this encounter Visit Diagnoses Diagnosis Chronic hepatitis C without mention of hepatic coma (CMS/HCC)- Primary Chronic hepatitis C without mention of hepatic coma documented in this encounter Care Teams Territory Sales Consultant Relationship Specialty Start Date End Date Marlon Trejo MD [address] [place] [address] PCP - General 12/11/05 documented as of this encounter
--- OUTSIDE RECORDS SUMMARY | 2024-09-18 19:53 | XMS_ITS | Encounter Summary ---
Author Organization [employer] [facility] Address [address] [place] [address] Care Team Providers Care Roller Machine Operator Name Role Phone Marlon Trejo MD Primary Care Provider Encounter Details Date Type Department Care Team (Latest Contact Info) Description 01/26/1999 Outpatient Historical [facility] Deny Castillo Jr., MD [address] [place] [address] Depressive disorder, not elsewhere classified (Primary Dx); Myalgia and myositis, unspecified; Need for prophylactic vaccination with tetanus-diphtheria (Td) Social History Tobacco Use Types Packs/Day Years Used Date Smoking Tobacco: Never Assessed Comments Unknown Sex and Gender Information Value Date Recorded Sex Assigned at Not on file Legal Sex Female 6:03 AM SOA ARCHITECT Gender Identity Not on file Sexual Orientation Not on file documented as of this encounter Plan of Treatment Not on file documented as of this encounter Visit Diagnoses Diagnosis Depressive disorder, not elsewhere classified- Primary Myalgia and myositis, unspecified Mylagia and myositis, unspecified Need for prophylactic vaccination with tetanus-diphtheria (Td) documented in this encounter Care Teams Roller Machine Operator Relationship Specialty Start Date End Date Marlon Trejo MD [address] [place] [address] PCP - General 12/11/05 documented as of this encounter
--- OUTSIDE RECORDS SUMMARY | 2024-09-18 19:53 | XMS_ITS | Encounter Summary ---
Author Organization [employer] [facility] Address [address] [place] [address] Care Team Providers Care Cleaner Signs Name Role Phone Marlon Trejo MD Primary Care Provider Encounter Details Date Type Department Care Team (Latest Contact Info) Description 08/14/2006 Outpatient Historical [facility] Lisa Laughlin FNP NO ADDRESS ON FILE Chronic Hepatitis C without Mention of Hepatic Coma (CMS/HCC) (Primary Dx) Social History Tobacco Use Types Packs/Day Years Used Date Smoking Tobacco: Never Assessed Comments Unknown Sex and Gender Information Value Date Recorded Sex Assigned at Not on file Legal Sex Female 6:03 AM HORTICULTURAL SERVICES SUPERVISOR Gender Identity Not on file Sexual Orientation Not on file documented as of this encounter Plan of Treatment Not on file documented as of this encounter Visit Diagnoses Diagnosis Chronic hepatitis C without mention of hepatic coma (CMS/HCC)- Primary Chronic hepatitis C without mention of hepatic coma documented in this encounter Care Teams Cleaner Signs Relationship Specialty Start Date End Date Marlon Trejo MD [address] [place] [address] PCP - General 12/11/05 documented as of this encounter
--- OUTSIDE RECORDS SUMMARY | 2024-09-18 19:53 | XMS_ITS | Patient Health Record ---
Author Organization [facility] Address [address] [place] [address] Care Team Providers Care Power Shovel Operator Name Role Phone Deny Castillo Unavailable [phone] Reason For Referral No Information Medications Medication SIG (Take, Route, Frequency, Duration) Notes Start Date End Date Status Methadone HCl 10 MG 1 tab po q 8 hours prn Oral for 30 Methadone HCl 10mg Tablet 1 tab po q 8 hours prn 07/17/2012 Active OxyIR 5 mg Take 1 capsule(s) by mouth q 4 to 6 hr prn for pain for 30 *please review for potential update for e-prescription and drug interaction check* OxyIR 5mg Capsules Take 1 capsule(s) by mouth q 4 to 6 hr prn for pain 11/19/2011 Active Simvastatin 40 MG Take 1 tablet(s) by mouth at bedtime. Oral for 30 Simvastatin 40mg Tablet Take 1 tablet(s) by mouth at bedtime. #30 (Thirty) tablet(s) 07/18/2012 Active Potassium Chloride ER 10 MEQ Take 1 cap by mouth daily Oral for 30 Potassium Chloride 10mEq Capsules, Extended Release Take 1 cap by mouth daily #30 (Thirty) capsule(s) 05/25/2013 Active Proventil HFA 108 (90 Base) MCG/ACT Inhale 2 puff(s) by mouth q 4 to 6 hr Inhalation for 30 Proventil HFA (Albuterol) 90mcg/1actuation Oral Inhaler Inhale 2 puff(s) by mouth q 4 to 6 hr #1 (One) 6.7 gm inhaler 07/17/2012 Active Lasix 20 MG Take 1 tablet(s) by mouth daily Oral for 30 Lasix (Furosemide) 20mg Tablet Take 1 tablet(s) by mouth daily #30 (Thirty) tablet(s) 05/25/2013 Active Immunizations Vaccine Route Administration Date Status Comme nts Pneumococcal polysaccharide PPV23 Unknown 12/02/2008 Ad ministered Problems Problem Type SNOMED Code ICD Code Onset Dates Problem Status W/U Status Risk Notes Problem Solitary nodule of lung (272972638) Lung nodule (518.89) 2015 Active confirmed [id number]- Problem Personal history of primary malignant neoplasm of breast (472220683) History of breast cancer (V10.3) 2011 Active confirmed [id number]- Problem Pneumococcal pneumonia (759056327) Acute lobar pneumonia (481) 2013 Active confirmed [id number]- Problem Acute frontal sinusitis (00513567) Acute frontal sinusitis (461.1) 2010 Problem resolved confirmed [id number]- Problem Actinic keratosis (342349217) Actinic keratosis (702.0) 2009 Problem resolved confirmed [id number]- Problem Rheumatoid arthritis (81488278) Rheumatoid arthritis (714.0) 2017 Problem resolved confirmed [id number]- Problem Memory loss (50424349) Memory loss (780.93) 2015 Problem resolved confirmed [id number]- Problem Headache (23730942) Headache (784.0) 02/08 Problem resolved confirmed [id number]- Problem Epistaxis (713646709) Epistaxis (784.7) 0 2017 Problem resolved confirmed [id number]- Problem Shortness of breath (301022255) Shortness of breath (786.05) 2011 Problem resolved confirmed [id number]- Problem Wheezing (64781500) Wheezing (786.07) 2009 Problem resolved confirmed [id number]- Problem Cough (94830170) Cough (786.2) 2011 Problem resolved confirmed [id number]- Problem Diarrhea (98538923) Diarrhea (787.91) 2008 Problem resolved confirmed [id number]- Problem Fall on same level from slipping, tripping or stumbling (642846371) Fall from other slipping, tripping, or stumbling (E885.9) 2015 Problem resolved confirmed [id number]- Problem Fibromyalgia (977750739) Fibromyalgia (729.1) 2010 Problem resolved confirmed [id number]- Problem Anemia (232794630) Anemia, unspe cified (285.9) 2015 Problem resolved confirmed [id number]- Problem Neck pain (09428295) Neck pain (723.1) 2010 Problem resolved confirmed [id number]- Problem Fatigue (57390790) Fatigue (780.79) 03/30 Problem resolved confirmed [id number]- Problem Vitamin D deficiency (67190010) Vitamin D deficiency (268.9) 2008 Problem resolved confirmed [id number]- Problem Hypercholesterolemia (36540050) Hypercholesterolemia (272.0) 2009 Problem resolved confirmed [id number]- Problem Moderate recurrent major depression (29301388) Major depression, recurrent episode, moderate (296.32) 2009 Problem resolved confirmed [id number]- Problem Shortness of breath (189575902) Shortness of breath (786.09) 2010 Problem resolved confirmed [id number]- Problem Shoulder pain (53209988) Shoulder pain (719.41) 2012 Problem resolved confirmed Michael-[id number] [id number]- Problem Screening for colon cancer (274891650) Screening for colon cancer (V76.49) 2014 Problem resolved confirmed Michael-[id number] [id number]- Problem Allergic rhinitis caused by pollen (72185948) Allergies (477.0) 2009 Problem resolved confirmed Michael-[id number] [id number]- Problem Disorder of hematopoietic system (61002131) Other abnormal findings on blood examination (790.99) 2015 Problem resolved confirmed Michael-[id number] [id number]- Problem Tobacco user (172956381) Cigarette smoking (305.1) 2009 Problem resolved confirmed Michael-[id number] [id number]- Problem Hand pain (40866721) Hand pain (729.5) 2017 Problem resolved confirmed Michael-[id number] [id number]- Problem Ear ache (43757419) Ear ache (388.71) 2015 Problem resolved confirmed Michael-[id number] [id number]- Problem Insomnia (124538371) Insomnia (307.41) 2010 Problem resolved confirmed Michael-[id number] [id number]- Problem Pain in limb (24678269) Thumb pain (729.5) 2015 Problem resolved confirmed Michael-[id number] [id number]- Problem Tobacco user (664620690) Tobacco abuse affecting health (305.1) 2015 Problem resolved confirmed Michael-98 [id number]- Problem Needs influenza immunization (662265547) Vaccination against other viral diseases, Influenza (V04.81) 2016 Problem resolved confirmed Michael-[id number] [id number]- Problem Other disease of nasal cavity and sinuses (478.19) 2014 Problem resolved confirmed Michael-[id number] [id number]- Problem Somnambulism (92579515) Somnambulism (307.46) 2011 Problem resolved confirmed Michael-[id number] [id number]- Problem Stress (891104543) Stress (300.02) 2009 Problem resolved confirmed Michael-[id number] [id number]- Problem Thyroid function tests abnormal (039431596) Abnormal thyroid findings (794.5) 2015 Problem resolved confirmed Michael-[id number] [id number]- Problem Chronic hepatitis C (673969716) Chronic hepatitis C (070.54) 2010 Problem resolved confirmed Michael-[id number] [id number]- Problem Localized, primary osteoarthritis of the pelvic region and thigh (922392117) Hip DJD (715.15) 2017 Problem resolved confirmed Michael-[id number] [id number]- Problem Photoallergic dermatitis (236607329) Sun photosensitivity (692.72) 2009 Problem resolved confirmed Michael-[id number] [id number]- Problem Vitamin D deficiency (61603804) Vitamin D deficiency, unspecified (268.9) 2015 Problem resolved confirmed Michael-[id number] [id number]- Problem Rectocele (863938657) Rectocele (618.04) 2016 Problem resolved confirmed Michael-[id number] [id number]- Problem Degenerative disc disease (09908911) Degenerative disc disease (722.6) 2017 Problem resolved confirmed Michael-[id number] [id number]- Plan Of Treatment No Information Medical (General) History Surgical History Surgery Date(Month/Year) Tonsillectomy/AdenoidectomyT ubal Ligation cancer left breast removed 5-2005;
--- OUTSIDE RECORDS SUMMARY | 2024-09-18 19:53 | XMS_ITS | Encounter Summary ---
Author Organization [employer] [facility] Address [address] [place] [address] Care Team Providers Care Folder Operator Name Role Phone Marlon Trejo MD Primary Care Provider Encounter Details Date Type Department Care Team (Latest Contact Info) Description 12/06/1999 Outpatient Historical [facility] Deny Castillo Jr., MD [address] [place] [id number] Myalgia and myositis, unspecified (Primary Dx); Unspecified adjustment reaction Social History Tobacco Use Types Packs/Day Years Used Date Smoking Tobacco: Never Assessed Comments Unknown Sex and Gender Information Value Date Recorded Sex Assigned at Not on file 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
--- OUTSIDE RECORDS SUMMARY | 2024-09-18 19:53 | XMS_ITS | Encounter Summary ---
Author Organization [employer] [facility] Address [address] [place] [address] Care Team Providers Care Combatant Diver Officer Name Role Phone Marlon Trejo MD Primary Care Provider [phone] Encounter Details Date Type Department Care Team (Latest Contact Info) Description 09/12/2006 Outpatient Historical [facility] Lisa Laughlin FNP NO ADDRESS ON FILE Chronic Hepatitis C without Mention of Hepatic Coma (CMS/HCC) (Primary Dx) Social History Tobacco Use Types Packs/Day Years Used Date Smoking Tobacco: Never Assessed Comments Unknown Sex and Gender Information Value Date Recorded Sex Assigned at Not on file 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
--- OUTSIDE RECORDS SUMMARY | 2024-09-18 19:53 | XMS_ITS | Encounter Summary ---
Author Organization [employer] [facility] Address [address] [place] [address] Care Team Providers Care Medical Certification Specialist Name Role Phone Marlon Trejo MD Primary Care Provider Encounter Details Date Type Department Care Team (Latest Contact Info) Description 09/18/2000 Outpatient Historical [facility] Maritzachina Ivan Roldan NO ADDRESS ON FILE Attention to dressings and sutures (Primary Dx) Social History Tobacco Use Types Packs/Day Years Used Date Smoking Tobacco: Never Assessed Comments Unknown Sex and Gender Information Value Date Recorded Sex Assigned at Not on file 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
--- OUTSIDE RECORDS SUMMARY | 2024-09-18 19:53 | XMS_ITS | Encounter Summary ---
Author Organization [facility] Address [address] [place] [address] Care Team Providers Care Cpo Name Role Phone Marlon Trejo MD Primary Care Provider Encounter Details Date Type Department Care Team (Latest Contact Info) Description 12/03/2005 Outpatient Historical [facility] [place] [address] [place] [address] Ludwin Cotter MD [address] [place] [address] [place] [address] Chronic Hepatitis C without Mention of Hepatic Coma (CMS/HCC) (Primary Dx) Social History Tobacco Use Types Packs/Day Years Used Date Smoking Tobacco: Never Assessed Comments Unknown Sex and Gender Information Value Date Recorded Sex Assigned at Not on file 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
[2024-09-18 19:55] VITALS: BP 112/67; PULSE 68; RESP 16; TEMP 36.9; O2SAT 99; BMI 19.3
--- NOTE | 2024-09-18 19:58 | ECG_ITS ---
[facility] Test Date: 2024-09-18 Pat Name: Delia Magallanes Department: Room: Gender: Female Marine Diver: : 1955 Requested By: Dejon Bean Order Number: [id number] Theresa MD: Onofre Mcginnis M.D. Measurements Intervals [place] Rate: 65 P: 66 IA: 180 QRS: 51 QRSD: 94 T: 74 QT: 409 QTc: 428 Interpretive Statements SINUS RHYTHM LEFT ATRIAL ENLARGEMENT [-0.15mV P-WAVE IN V1/V2] POSSIBLE RIGHT VENTRICULAR CONDUCTION DELAY [RSR (QR) IN V1/V2] MODERATE ST DEPRESSION [0.05+ mV ST DEPRESSION] Compared to ECG 06/23/2020 15:30:46 Atrial abnormality now present ST (T wave) deviation now present Ventricular premature complex(es) no longer present T-wave abnormality no longer present Electronically Signed On 09-22-2024 14:59:26 CDT by Onofre Mcginnis M.D. [id number]
--- NOTE | 2024-09-18 21:09 | ECG_ITS ---
[facility] Test Date: 2024-09-18 Pat Name: Delia Magallanes Department: Room: Gender: Female Quality Improvement Coordinator: : 1955 Requested By: Fely Gunter Order Number: [id number] Cardenas MD: Onofre Mcginnis M.D. Measurements Intervals [place] Rate: 61 P: 65 MN: 207 QRS: 12 QRSD: 94 T: 48 QT: 412 QTc: 418 Interpretive Statements SINUS RHYTHM POSSIBLE LEFT ATRIAL ENLARGEMENT [-0.1mV P-WAVE IN V1/V2] POSSIBLE RIGHT VENTRICULAR CONDUCTION DELAY [RSR (QR) IN V1/V2] Compared to ECG 09/18/2024 19:58:42 ST (T wave) deviation no longer present Electronically Signed On 09-22-2024 14:58:56 CDT by Onofre Mcginnis M.D. [id number] [id number]
--- NOTE | 2024-09-18 21:09 | XRR_ITS ---
PROCEDURE INFORMATION: Exam: XR Chest Exam date and time: 09/18/2024 9:11 PM Age: 69 years old Clinical indication: Shortness of breath; Prior surgery; Surgery date: 6+ months; Surgery type: Mastectomy; C/O SOB TECHNIQUE: Imaging protocol: Radiologic exam of the chest. Views: 1 view. COMPARISON: CT lung screening [id number] 10/28/2023 10:44 AM FINDINGS: Lungs: Emphysematous changes. Several right upper lung field calcified granulomas. Lingular atelectasis versus infiltrate. Pleural spaces: Unremarkable. No pleural effusion. No pneumothorax. Heart/Mediastinum: Cardiomegaly. Vasculature: Aortic atherosclerotic calcifications. Bones/joints: Unremarkable. XR/XR chest 1V portable [id number] IMPRESSION: 1. Lingular atelectasis versus infiltrate. 2. Emphysematous changes. 3. Aortic atherosclerotic calcifications. 4. Several right upper lung field calcified granulomas. 5. Cardiomegaly.
--- NOTE | 2024-09-18 21:29 | W.ED.SOB ---
HPI - SOB/Dyspnea General: Chief Complaint: Shortness of Breath/Dyspnea Stated Complaint: trouble breathing Time Seen by Provider: 09/18/24 21:16 History of Present Illness: HPI Narrative: 69-year-old smoker complaining of pleuritic left-sided chest pain. 3 to 4 days of pain. She says she has had fever on and off. Pain is worse with deep breathing and coughing. She has had some yellow sputum. No history of cardiac disease. No vomiting or diarrhea. No sick contacts. No leg swelling. No calf pain. Related Data Home Medications ?Medication ?Instructions ?Recorded ?Confirmed meloxicam 15 mg tablet 15 mg PO DAILY 11/04/23 08/26/24 zaleplon 5 mg capsule mg PO 04/28/24 08/26/24 Previous Rx's ?Medication ?Instructions ?Recorded BRA WITH LEFT PROSTHESIS #2 ea 12/23/19 azithromycin 250 mg tablet See Rx Instructions PO .COMPLEX #6 09/18/24 tabs cefdinir 300 mg capsule 300 mg PO BID #14 caps 09/18/24 Allergies Allergy/AdvReac Type Severity Reaction Status Date / Time indomethacin AdvReac Mild Unknown Verified 08/26/24 07:57 lorazepam (From Ativan) AdvReac Mild ADR-Confusi Verified 08/26/24 07:57 on pregabalin (From Lyrica) AdvReac Mild Unknown Verified 08/26/24 07:57 trazodone AdvReac Mild Unknown Verified 08/26/24 07:57 [facility] ED PFSH: Medical History (Updated 09/18/24 @ 23:23 by Dejon Hwang DO) DDD (degenerative disc disease), cervical Depression Chronic diarrhea GERD (gastroesophageal reflux disease) Breast cancer Essential hypertension Hyperlipidemia Hepatitis C Surgical History H/O: hysterectomy History of tonsillectomy History of mastectomy, total H/O tubal ligation History of thyroid surgery Family History Other Cancer Social History Smoking and tobacco/nicotine status: current every day tobacco/nicotine user cigarettes Packs smoked per day: 0.5 Years cigarettes smoked: 25 Second hand smoke exposure: Yes Alcohol intake: never Substance/Drug Use: never Lives independently: Yes Household members: significant other and family Marital status: Current occupational status: disabled Do you think of yourself as: Straight/Heterosexual Current gender identity: Female Physical Exam Const: GENERAL APPEARANCE: cooperative and frail appearing (Mildly) HENMT: COMMON NORMALS: normocephalic, atraumatic and Normal external nose present HEAD & SCALP: normocephalic and atraumatic FACE & SINUS: normal facial exam and face symmetric NOSE: Normal external nose present Eye: COMMON NORMALS: Equal, round and reactive pupils present and EOMs intact bilaterally PUPIL: Yes Equal, round and reactive pupils present Neck/C-Spine: GENERAL: Yes trachea midline Chest: CHEST: Yes Symmetrical chest wall rise OTHER: Tenderness left anterior chest wall Resp: COMMON NORMALS: normal respiratory effort, No retractions, No use of accessory muscles and clear to auscultation bilaterally AUSCULTATION: clear to auscultation bilaterally Cardio: COMMON NORMALS: regular rate and regular rhythm RATE: regular rate RHYTHM: regular rhythm GI: COMMON NORMALS: Normal to inspection, nondistended, normoactive bowel sounds present Extremity: COMMON NORMALS: no pedal edema Neuro: SERGEY COMA SCALE: document GCS findings Vardaman coma scale eye opening: Spontaneous Vardaman coma scale verbal response: Orientated Sergey coma scale motor response: Obey commands Vardaman coma scale total score: 15 SENSORY EXAM: Yes extremities (intact) Psych: COMMON NORMALS: speech normal SPEECH: Yes normal speech Skin: COMMON NORMALS: no rashes or lesions noted GENERAL SKIN EXAM: no rashes or lesions noted Course Vital Signs: Vital signs: Vital Signs Temperature 98.4 F 09/18/24 19:55 Pulse Rate 80 09/18/24 23:54 Respiratory Rate 16 09/18/24 23:54 Blood Pressure 120/75 09/18/24 23:54 Pulse Oximetry 94 09/18/24 23:54 Oxygen Delivery Me thod Room Air 09/18/24 22:49 MDM - SOB/Dyspnea Medical Decision Making This patient is not in respiratory distress. Her vitals are stable. She is afebrile. CBC BMP are normal. Chest x-ray reveals a lingular infiltrate which is where she is tender. Her BNP did not significant. Her delta troponin is normal. Swabs for COVID flu and RSV are negative. She will be given antibiotics for the lingular infiltrate. She declines pain medication. Family member is with her. Patient and family understand treatment. They will return for worsening symptoms despite treatment. Lab Data 09/18/24 21:20 09/18/24 21:20 Labs/Radiology: Radiology Impressions Chest X-Ray 09/18/24 21:09 IMPRESSION: 1. Lingular atelectasis versus infiltrate. 2. Emphysematous changes. 3. Aortic atherosclerotic calcifications. 4. Several right upper lung field calcified granulomas. 5. Cardiomegaly. Laboratory Results WBC 5.25 10^3/uL (3.29-11.43) 09/18/24 21:20 RBC 4.36 10^6/uL (3.85-5.65) 09/18/24 21:20 Hgb 13.20 g/dL (11.27-16.99) 09/18/24 21:20 Hct 41.3 % (36-47) 09/18/24 21:20 MCV 94.7 fl (85-98) 09/18/24 21:20 MCH 30.3 pg (27-33) 09/18/24 21:20 MCHC 32.0 g/dL (30-55) 09/18/24 21:20 RDW 15.6 % (12.1-15.1) H 09/18/24 21:20 Plt Count 247 10^3/cmm (157-399) 09/18/24 21:20 MPV 9.7 fL (7.4-10.4) 09/18/24 21:20 Neut % (Auto) 66.2 % 09/18/24 21:20 Lymph % (Auto) 24.8 % 09/18/24 21:20 [place] % (Auto) 7.0 % 09/18/24 21:20 Eos % (Auto) 0.8 % 09/18/24 21:20 Baso % (Auto) 0.8 % 09/18/24 21:20 Neut # (Auto) 3.48 10^3/uL (1.8-7.7) 09/18/24 21:20 Lymph # (Auto) 1.3 10^3/uL (0.8-4.8) 09/18/24 21:20 [place] # (Auto) 0.4 10^3/uL (0.2-0.9) 09/18/24 21:20 Eos # (Auto) 0.0 10^3/uL (0.0-0.8) 09/18/24 21:20 Baso # (Auto) 0.0 10^3/uL (0.0-0.1) 09/18/24 21:20 Nucleated RBC % (auto) 0 % 09/18/24 21:20 Nucleated RBCs # 0.0 /100WBC 09/18/24 21:20 Sodium 139 mmol/L (136-145) 09/18/24 21:20 Potassium 4.0 mmol/L (3.5-5.1) 09/18/24 21:20 Chloride 101 mmol/L (98-107) 09/18/24 21:20 Carbon Dioxide 26 mmol/L (22-29) 09/18/24 21:20 Anion Gap 16.0 (5-19) 09/18/24 21:20 BUN 14 mg/dL (8-23) 09/18/24 21:20 Creatinine 0.6 mg/dL (0.5-0.9) 09/18/24 21:20 GFR Calculation 98.8 mL/min (90-130) 09/18/24 21:20 Glucose 89 mg/dL (65-115) 09/18/24 21:20 Calculated Osmolality 288 mOsm/kg (285-295) 09/18/24 21:20 Lactic Acid 0.7 mmol/L (0.5-2.2) 09/18/24 21:20 Calcium 9.3 mg/dL (8.5-10.5) 09/18/24 21:20 Total Bilirubin 0.2 mg/dL (0.15-1.2) 09/18/24 21:20 AST 23 U/L (0-32) 09/18/24 21:20 ALT 17 U/L (0-33) 09/18/24 21:20 Alkaline Phosphatase 74 U/L (35-105) 09/18/24 21:20 Troponin T Baseline 9 ng/L (0-10) 09/18/24 21:20 Troponin T 120 Minute 8.87 ng/L (0-10) 09/18/24 20:07 Delta Troponin T -0.13 ABS# (0-10) L 09/18/24 20:07 C-Reactive Protein 66.3 mg/L (0.0-4.9) H 09/18/24 21:20 NT-Pro-B Natriuret Pep 153 pg/mL (0-125) H 09/18/24 21:20 Total Protein 7.3 g/dL (6.6-8.7) 09/18/24 21:20 Albumin 4.1 g/dL (3.5-5.2) 09/18/24 21:20 Globulin 3.2 g/dL (1.3-4.6) 09/18/24 21:20 Influenza A (PCR) Negative (Negative) 09/18/24 21:26 Influenza Type B (PCR) Negative (Negative) 09/18/24 21:26 RSV (PCR) Negative (Negative) 09/18/24 21:26 SARS-CoV-2 (PCR) Negative (Negative) 09/18/24 21:26 All radiology interpretation(s) finalized by discharge Discharge Plan Discharge Patient Disposition: Home Clinical Impression: Pneumonia Qualifiers: Pneumonia type: due to unspecified organism Laterality: left Condition: Stable Prescriptions: New azithromycin 250 mg tablet See Rx Instructions .ROUTE .COMPLEX Qty: 6 0RF Rx Instructions: For 250 mg dose pack: take 500 mg today (day 1), then 250 mg for 4 days (days 2-5) cefdinir 300 mg capsule 300 mg PO BID Qty: 14 0RF No Action (DME) BRA WITH LEFT PROSTHESIS See Rx Instructions .Route .MEDSUPPLY Qty: 2 1RF Rx Instructions: As directed meloxicam 15 mg tablet 15 mg PO DAILY zaleplon 5 mg capsule PO Discharge Orders: Discharge ED (Routine); Ordered 09/18/24 Ordered By: Dejon Hwang Referrals: Robert Alonzo MD [Primary Care Provider, Family Practice] - 1-3 days Patient Instructions: Pneumonia (ED), Opioid Safety, Pain Management, Patient Portal & Delgado Instructions Activity Restrictions/Additional Instructions: Return for fever despite 2-3 doses of antibiotics, worsening shortness of breath despite treatment, worsening pain, any other concerning symptoms. Call your doctor Saturday for a follow-up appointment. Print Language: Romansh Coding Level of Care Code ED Change Management Manager for Xavi Malhotra
[2024-09-18 21:34] LABS: Hematocrit 41.3 % (36-47); Hemoglobin 13.20 g/dL (11.27-16.99); Mean Corpuscular HGB Conc 32.0 g/dL (30-55); Mean Corpuscular Hemoglobin 30.3 pg (27-33); Mean Corpuscular Volume 94.7 fl (85-98); Nucleated Red Blood Cells % 0 %; Platelet Count 247 10^3/cmm (157-399); Red Blood Count 4.36 10^6/uL (3.85-5.65); White Blood Count 5.25 10^3/uL (3.29-11.43)
[2024-09-18 21:54] LABS: Lactic Sepsis W/Reflex 0.7 mmol/L (0.5-2.2)
[2024-09-18 21:55] LABS: Troponin(5th) Baseline 9 ng/L (0-10)
[2024-09-18 22:08] LABS: Alanine Aminotransferase 17 U/L (0-33); Albumin Level 4.1 g/dL (3.5-5.2); Alkaline Phosphatase 74 U/L (35-105); Anion Gap 16.0 (5-19); Aspartate Amino Transferase 23 U/L (0-32); Blood Urea Nitrogen 14 mg/dL (8-23); Calcium 9.3 mg/dL (8.5-10.5); Carbon Dioxide 26 mmol/L (22-29); Chloride 101 mmol/L (98-107); Creatinine Clr Calc Pharmacy 57.0692; Globulin 3.2 g/dL (1.3-4.6); Glucose 89 mg/dL (65-115); NT Pro B Type Natriuretic Pept 153 pg/mL (0-125); Osmolality Calculated 288 mOsm/kg (285-295); Potassium 4.0 mmol/L (3.5-5.1); Sodium 139 mmol/L (136-145); Total Protein 7.3 g/dL (6.6-8.7)
[2024-09-18 22:12] LABS: Respiratory Syncytial Virus Ce NEGATIVE (Negative); SARS-CoV-2 PCR NEGATIVE (Negative)
[2024-09-18] MEDS: cefTRIAXone 1,000 mg SDV 1000 MG IVP (22:48)
[2024-09-18 22:49] VITALS: BP 116/34; PULSE 66; RESP 16; O2SAT 100
--- NOTE | 2024-09-18 23:09 | ECG_ITS ---
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 Measurements Intervals [employer] Rate: 67 P: 70 MN: 216 QRS: 21 QRSD: 90 T: 55 QT: 390 QTc: 413 Interpretive Statements SINUS RHYTHM WITH FIRST DEGREE AV BLOCK POSSIBLE LEFT ATRIAL ENLARGEMENT [-0.1mV P-WAVE IN V1/V2] POSSIBLE RIGHT VENTRICULAR CONDUCTION DELAY [RSR (QR) IN V1/V2] POSSIBLE LEFT VENTRICULAR HYPERTROPHY [VOLTAGE CRITERIA PLUS LAE OR QRS WIDENING] Compared to ECG 09/18/2024 22:16:25 First degree AV block now present Electronically Signed On 09-23-2024 00:35:15 CDT by Jose Valerio M.D. [id number] [id number]
[2024-09-18 23:54] VITALS: BP 120/75; PULSE 80; RESP 16; O2SAT 94
[2024-09-19 00:02] LABS: Troponin 5 2HR 8.87 ng/L (0-10)
[2024-09-19 00:11] LABS: Troponin 5 2HR Delta -0.13 ABS# (0-10)
== END 2024-09-18 23:54 | disposition home or self-care (01) ==
PROVIDERS: Emergency Medicine; Emergency Provider Emergency Medicine; PCP Family Medicine
DX: J18.9 Pneumonia, unspecified organism (principal); Z11.52 Encounter for screening for COVID-19; F17.210 Nicotine dependence, cigarettes, uncomplicated; E78.5 Hyperlipidemia, unspecified; I10 Essential (primary) hypertension; Z85.3 Personal history of malignant neoplasm of breast
CPT/HCPCS: 36415; 71045; 80053; 83605; 83880; 84484; 85025; 86140; 87040; 87637; 93005; 96374; 99285; J0696; Q0144

== ENCOUNTER 2024-09-20 11:39 | Emergency (ER) | payer MEDICARE, MEDICAID, SELFPAY ==
--- OUTSIDE RECORDS SUMMARY | 2024-09-20 11:43 | XMS_ITS | Encounter Summary ---
Author Organization [facility] Address [address] [place] [address] Care Team Providers Care Nutrition Professor Name Role Phone Marlon Trejo MD Primary Care Provider Encounter Details Date Type Department Care Team (Latest Contact Info) Description 12/11/2005 Outpatient Historical [facility] [address] [place] [address] Ludwin Cotter MD [address] [place] [address] Dr Carney [address] [place] [phone] Chronic Hepatitis C without Mention of Hepatic Coma (CMS/HCC) (Primary Dx) Social History Tobacco Use Types Packs/Day Years Used Date Smoking Tobacco: Never Assessed Comments Unknown Sex and Gender Information Value Date Recorded Sex Assigned at Not on file Legal Sex Female 6:03 AM MANAGER FAMILY Gender Identity Not on file Sexual Orientation Not on file documented as of this encounter Plan of Treatment Not on file documented as of this encounter Visit Diagnoses Diagnosis Chronic hepatitis C without mention of hepatic coma (CMS/HCC)- Primary Chronic hepatitis C without mention of hepatic coma documented in this encounter Care Teams Nutrition Professor Relationship Specialty Start Date End Date Marlon Trejo MD [address] [place] [address] PCP - General 12/11/05 documented as of this encounter
--- OUTSIDE RECORDS SUMMARY | 2024-09-20 11:43 | XMS_ITS | Encounter Summary ---
Author Organization [facility] Address [address] [place] [address] Care Team Providers Care Wall Covering Contractor Name Role Phone Marlon Trejo MD Primary Care Provider Encounter Details Date Type Department Care Team (Latest Contact Info) Description 04/21/1998 Outpatient Historical [facility] Deny Castillo Jr., MD [address] [place] [address] Myalgia and myositis, unspecified (Primary Dx) Social History Tobacco Use Types Packs/Day Years Used Date Smoking Tobacco: Never Assessed Comments Unknown Sex and Gender Information Value Date Recorded Sex Assigned at Not on file 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
--- OUTSIDE RECORDS SUMMARY | 2024-09-20 11:43 | XMS_ITS | Encounter Summary ---
Author Organization [facility] Address [address] [place] [address] Care Team Providers Care Water Taxi Boat Mate Name Role Phone Marlon Trejo MD Primary Care Provider [phone] Encounter Details Date Type Department Care Team (Latest Contact Info) Description 08/27/2001 Outpatient Historical [facility] Samson Ribeiro MD [address] [place] [phone] DEPRESSIVE DISORDER NEC (Primary Dx) Social History Tobacco Use Types Packs/Day Years Used Date Smoking Tobacco: Never Assessed Comments Unknown Sex and Gender Information Value Date Recorded Sex Assigned at Not on file 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
--- OUTSIDE RECORDS SUMMARY | 2024-09-20 11:43 | XMS_ITS | Encounter Summary ---
Author Organization [facility] Address [address] [place] [address] Care Team Providers Care Analog Ic Design Engineer Name Role Phone Marlon Trejo MD Primary Care Provider Encounter Details Date Type Department Care Team (Latest Contact Info) Description 07/28/1998 Outpatient Historical [facility] Deny Castillo Jr., MD [address] [place] [phone] Myalgia and myositis, unspecified (Primary Dx); Depressive disorder, not elsewhere classified Social History Tobacco Use Types Packs/Day Years Used Date Smoking Tobacco: Never Assessed Comments Unknown Sex and Gender Information Value Date Recorded Sex Assigned at Not on file Legal Sex Female 6:03 AM TATTOO IDENTIFIER Gender Identity Not on file Sexual Orientation Not on file documented as of this encounter Plan of Treatment Not on file documented as of this encounter Visit Diagnoses Diagnosis Myalgia and myositis, unspecified- Primary Mylagia and myositis, unspecified Depressive disorder, not elsewhere classified documented in this encounter Care Teams Analog Ic Design Engineer Relationship Specialty Start Date End Date Marlon Trejo MD [address] [place] [phone] PCP - General 12/11/05 documented as of this encounter
--- OUTSIDE RECORDS SUMMARY | 2024-09-20 11:43 | XMS_ITS | Encounter Summary ---
Author Organization [employer] [facility] Address [address] [place] [address] Care Team Providers Care Medical Office Scheduler Name Role Phone Marlon Trejo MD Primary [...] on file Legal Sex Female 6:03 AM CONTINUOUS IMPROVEMENT BLACK BELT Gender Identity Not on file Sexual Orientation Not on file documented as of this encounter Plan of Treatment Not on file documented as of this encounter Visit Diagnoses Diagnosis Chronic hepatitis C without mention of hepatic coma (CMS/HCC)- Primary Chronic hepatitis C without mention of hepatic coma documented in this encounter Care Teams Medical Office Scheduler Relationship Specialty Start Date End Date Marlon Trejo MD [address] [place] [address] PCP - General 12/11/05 documented as of this encounter
--- OUTSIDE RECORDS SUMMARY | 2024-09-20 11:43 | XMS_ITS | Encounter Summary ---
Author Organization [employer] [facility] Address [address] [place] [address] Care Team Providers Care Sheet Metal Layout Worker Name Role Phone Marlon Trejo MD Primary Care Provider Encounter Details Date Type Department Care Team (Latest Contact Info) Description 07/18/2006 Outpatient Historical [facility] Lisa Laughlin FNP NO ADDRESS ON FILE Chronic Hepatitis C without Mention of Hepatic Coma (CMS/HCC) (Primary Dx) Social History Tobacco Use Types Packs/Day Years Used Date Smoking Tobacco: Never Assessed Comments Unknown Sex and Gender Information Value Date Recorded Sex Assigned at Not on file Legal Sex Female 6: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
--- OUTSIDE RECORDS SUMMARY | 2024-09-20 11:43 | XMS_ITS | Encounter Summary ---
Author Organization [facility] Address [address] [place] [address] Care Team Providers Care Director Geothermal Operations Name Role Phone Marlon Trejo MD Primary Care Provider Encounter Details Date Type Department Care Team (Latest Contact Info) Description 02/06/2006 Outpatient Historical [facility] [place] [address] [facility] [address] [place] [address] Ludwin Cotter MD [address] [place] [address] [place] [address] Chronic Hepatitis C without Mention of Hepatic Coma (CMS/HCC) (Primary Dx) Social History Tobacco Use Types Packs/Day Years Used Date Smoking Tobacco: Never Assessed Comments Unknown Sex and Gender Information Value Date Recorded Sex Assigned at Not on file Legal Sex Female 6:03 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
--- OUTSIDE RECORDS SUMMARY | 2024-09-20 11:43 | XMS_ITS | Encounter Summary ---
Author Organization [employer] [facility] Address [address] [place] [address] Care Team Providers Care Manager Learning Name Role Phone Marlon Trejo MD Primary Care Provider Encounter Details Date Type Department Care Team (Latest Contact Info) Description 05/22/2006 Outpatient Historical [facility] Lisa Laughlin FNP NO ADDRESS ON FILE Chronic Hepatitis C without Mention of Hepatic Coma (CMS/HCC) (Primary Dx) Social History Tobacco Use Types Packs/Day Years Used Date Smoking Tobacco: Never Assessed Comments Unknown Sex and Gender Information Value Date Recorded Sex Assigned at Not on file Legal Sex Female 6:03 AM TAX MANAGER PUBLIC Gender Identity Not on file Sexual Orientation Not on file documented as of this encounter Plan of Treatment Not on file documented as of this encounter Visit Diagnoses Diagnosis Chronic hepatitis C without mention of hepatic coma (CMS/HCC)- Primary Chronic hepatitis C without mention of hepatic coma documented in this encounter Care Teams Manager Learning Relationship Specialty Start Date End Date Marlon Trejo MD [address] [place] [address] PCP - General 12/11/05 documented as of this encounter
--- OUTSIDE RECORDS SUMMARY | 2024-09-20 11:43 | XMS_ITS | Encounter Summary ---
Author Organization [employer] [facility] Address [address] [place] [address] Care Team Providers Care Rubber Production Machine Operator Name Role Phone Marlon Trejo MD Primary Care Provider [phone] Encounter Details Date Type Department Care Team (Latest Contact Info) Description 12/06/1999 Outpatient Historical [facility] Deny Castillo Jr., MD [address] [place] [phone] Myalgia and myositis, unspecified (Primary Dx); Unspecified adjustment reaction Social History Tobacco Use Types Packs/Day Years Used Date Smoking Tobacco: Never Assessed Comments Unknown Sex and Gender Information Value Date Recorded Sex Assigned at Not on file Legal Sex Female 6:03 AM DYNAMITE PACKING MACHINE FEEDER Gender Identity Not on file Sexual Orientation Not on file documented as of this encounter Plan of Treatment Not on file documented as of this encounter Visit Diagnoses Diagnosis Myalgia and myositis, unspecified- Primary Mylagia and myositis, unspecified Unspecified adjustment reaction documented in this encounter Care Teams Rubber Production Machine Operator Relationship Specialty Start Date End Date Marlon Trejo MD [address] [place] [phone] PCP - General 12/11/05 documented as of this encounter
--- OUTSIDE RECORDS SUMMARY | 2024-09-20 11:43 | XMS_ITS | Encounter Summary ---
Author Organization [facility] Address [address] [place] [address] Care Team Providers Care Msw Name Role Phone Marlon Trejo MD Primary Care Provider [phone] Encounter Details Date Type Department Care Team (Latest Contact Info) Description 12/03/2005 Outpatient Historical [facility] [place] [address] [facility] [address] [place] [address] Ludwin Cotter MD [address] [place] [address] [place] [address] Chronic Hepatitis C without Mention of Hepatic Coma (CMS/HCC) (Primary Dx) Social History Tobacco Use Types Packs/Day Years Used Date Smoking Tobacco: Never Assessed Comments Unknown Sex and Gender Information Value Date Recorded Sex Assigned at Not on file Legal Sex Female 6:03 AM MONITOR TECH Gender Identity Not on file Sexual Orientation Not on file documented as of this encounter Plan of Treatment Not on file documented as of this encounter Visit Diagnoses Diagnosis Chronic hepatitis C without mention of hepatic coma (CMS/HCC)- Primary Chronic hepatitis C without mention of hepatic coma documented in this encounter Care Teams Msw Relationship Specialty Start Date End Date Marlon Trejo MD [address] [place] [address] PCP - General 12/11/05 documented as of this encounter
--- OUTSIDE RECORDS SUMMARY | 2024-09-20 11:43 | XMS_ITS | Encounter Summary ---
Author Organization [employer] [facility] Address [address] [place] [address] Care Team Providers Care Noc Engineer Name Role Phone Marlon Trejo MD [...] on file Legal Sex Female 6:03 AM CREW BOAT OPERATOR Gender Identity Not on file Sexual Orientation Not on file documented as of this encounter Plan of Treatment Not on file documented as of this encounter Visit Diagnoses Diagnosis Chronic hepatitis C without mention of hepatic coma (CMS/HCC)- Primary Chronic hepatitis C without mention of hepatic coma documented in this encounter Care Teams Noc Engineer Relationship Specialty Start Date End Date Marlon Trejo MD [address] [place] [address] PCP - General 12/11/05 documented as of this encounter
--- OUTSIDE RECORDS SUMMARY | 2024-09-20 11:43 | XMS_ITS | Encounter Summary ---
Author Organization [employer] [facility] Address [address] [place] [address] Care Team Providers Care Roping Machine Tender Name Role Phone Marlon Trejo MD Primary Care Provider [phone] Encounter Details Date Type Department Care Team (Latest Contact Info) Description 09/18/2000 Outpatient Historical [facility] Maritzachina Ivan Roldan NO ADDRESS ON FILE Attention to dressings and sutures (Primary Dx) Social History Tobacco Use Types Packs/Day Years Used Date Smoking Tobacco: Never Assessed Comments Unknown Sex and Gender Information Value Date Recorded Sex Assigned at Not on file Legal Sex Female 6:03 AM 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
--- OUTSIDE RECORDS SUMMARY | 2024-09-20 11:43 | XMS_ITS | Clinical Summary ---
Author Organization [employer] Address [address] Ramosn: Epic Prelude ADT [place] [address] Care Team Providers Care Off Track Betting Manager Name Role Phone Marlon Trejo MD Primary Care Provider [phone] Immunizations Immunization Administration Dates Next Due (TDVAX)(7 [...] on file Legal Sex Female 6:03 AM INSULATION WORKER Gender Identity Not on file Sexual Orientation [...] - 1-dose 75+ series) 2029 Care Teams Off Track Betting Manager Relationship Specialty Start Date End Date Marlon Trejo MD [address] [place] [address] PCP - General 12/11/05
--- OUTSIDE RECORDS SUMMARY | 2024-09-20 11:43 | XMS_ITS | Patient Health Record ---
Author Organization [facility] Address [address] [place] [address] Care Team Providers Care Care Tech Name Role Phone Deny Castillo Unavailable [phone] Reason For Referral No Information Medications Medication SIG (Take, Route, Frequency, Duration) Notes Start Date End Date Status Methadone HCl 10 MG Tablet 1 tab po q 8 hours prn Oral; Duration: 30 Methadone HCl 10mg Tablet 1 tab po q 8 hours prn 07/17/2012 Active OxyIR 5 mg capsule Take 1 capsule(s) by mouth q 4 to 6 hr prn for pain; Duration: 30 *please review for potential update for e-prescription and drug interaction check* OxyIR 5mg Capsules Take 1 capsule(s) by mouth q 4 to 6 hr prn for pain 11/19/2011 Active Simvastatin 40 MG Tablet Take 1 tablet(s) by mouth at bedtime. Oral; Duration: 30 Simvastatin 40mg Tablet Take 1 tablet(s) by mouth at bedtime. #30 (Thirty) tablet(s) 07/18/2012 Active Potassium Chloride ER 10 MEQ Capsule Extended Release Take 1 cap by mouth daily Oral; Duration: 30 Potassium Chloride 10mEq Capsules, Extended Release Take 1 cap by mouth daily #30 (Thirty) capsule(s) 05/25/2013 Active Proventil HFA 108 (90 Base) MCG/ACT Aerosol Solution Inhale 2 puff(s) by mouth q 4 to 6 hr Inhalation; Duration: 30 Proventil HFA (Albuterol) 90mcg/1actuation Oral Inhaler Inhale 2 puff(s) by mouth q 4 to 6 hr #1 (One) 6.7 gm inhaler 07/17/2012 Active Lasix 20 MG Tablet Take 1 tablet(s) by mouth daily Oral; Duration: 30 Lasix (Furosemide) 20mg Tablet Take 1 tablet(s) by mouth daily #30 (Thirty) tablet(s) 05/25/2013 Active Immunizations Vaccine Route Administration Date Status Comme nts Pneumococcal polysaccharide PPV23 Unknown 12/02/2008 Ad ministered Social History Social History Additional Details Category Social Info Options Details zzMigrated Social History Migrated Social History Advance Directive: Current and Verified Signed on 03/09/2011, withhold IV and tube nutrition, withhold surgery, withhold antibiotics, withhold mechanical ventilator, withhold radiation therapy, withhold dialysis, withhold chemotherapy, withhold CPR Other All other Life Prolinging... Problems Problem Type SNOMED Code ICD Code Onset Dates Problem Status W/U Status Risk Notes Problem Solitary nodule of lung (620814939) Lung nodule (518.89) 2015 Active confirmed [id number]- Problem Personal history of primary malignant neoplasm of breast (055390916) History of breast cancer (V10.3) 2011 Active confirmed [id number]- Problem Pneumococcal pneumonia (813297490) Acute lobar pneumonia (481) 2013 Active confirmed [id number]- Problem Acute frontal sinusitis (45686632) Acute frontal sinusitis (461.1) 2010 Problem resolved confirmed [id number]- Problem Actinic keratosis (179283754) Actinic keratosis (702.0) 2009 Problem resolved confirmed [id number]- Problem Rheumatoid arthritis (21684693) Rheumatoid arthritis (714.0) 2017 Problem resolved confirmed [id number]- Problem Memory loss (36974608) Memory loss (780.93) 2015 Problem resolved confirmed [id number]- Problem Headache (95644018) Headache (784.0) 02/08 Problem resolved confirmed [id number]- Problem Epistaxis (700881966) Epistaxis (784.7) 0 2017 Problem resolved confirmed [id number]- Problem Shortness of breath (094242653) Shortness of breath (786.05) 2011 Problem resolved confirmed [id number]- Problem Wheezing (42526691) Wheezing (786.07) 2009 Problem resolved confirmed [id number]- Problem Cough (49799917) Cough (786.2) 2011 Problem resolved confirmed [id number]- Problem Diarrhea (23432202) Diarrhea (787.91) 2008 Problem resolved confirmed [id number]- Problem Fall on same level from slipping, tripping or stumbling (222527079) Fall from other slipping, tripping, or stumbling (E885.9) 2015 Problem resolved confirmed [id number]- Problem Fibromyalgia (558471886) Fibromyalgia (729.1) 2010 Problem resolved confirmed [id number]- Problem Anemia (947399919) Anemia, unspe cified (285.9) 2015 Problem resolved confirmed [id number]- Problem Neck pain (29836952) Neck pain (723.1) 2010 Problem resolved confirmed [id number]- Problem Fatigue (46297138) Fatigue (780.79) 03/30 Problem resolved confirmed [id number]- Problem Vitamin D deficiency (57033186) Vitamin D deficiency (268.9) 2008 Problem resolved confirmed [id number]- Problem Hypercholesterolemia (67290794) Hypercholesterolemia (272.0) 2009 Problem resolved confirmed [id number]- Problem Moderate recurrent major depression (95974923) Major depression, recurrent episode, moderate (296.32) 2009 Problem resolved confirmed [id number]- Problem Shortness of breath (658692591) Shortness of breath (786.09) 2010 Problem resolved confirmed [id number]- Problem Shoulder pain (56307478) Shoulder pain (719.41) 2012 Problem resolved confirmed [id number]- Problem Screening for colon cancer (375426233) Screening for colon cancer (V76.49) 2014 Problem resolved confirmed [id number]- Problem Allergic rhinitis caused by pollen (32227481) Allergies (477.0) 2009 Problem resolved confirmed [id number]- Problem 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) Other abnormal findings on blood examination (790.99) 2015 Problem resolved confirmed [id number]- Problem Tobacco user (986054337) Cigarette smoking (305.1) 2009 Problem resolved confirmed [id number]- Problem Hand pain (36185785) Hand pain (729.5) 2017 Problem resolved confirmed [id number]- Problem Ear ache (695734842) Ear ache (388.71) 2015 Problem resolved confirmed [facility]-[id number]- Problem Insomnia (696887231) Insomnia (307.41) 2010 Problem resolved confirmed Michael-[id number]- Problem Pain in limb (36929251) Thumb pain (729.5) 2015 Problem resolved confirmed [id number]- Problem Tobacco user (015471732) Tobacco abuse affecting health (305.1) 2015 Problem resolved confirmed [facility]-[id number] [id number]- Problem Needs influenza immunization (468315447) Vaccination against other viral diseases, Influenza (V04.81) 2016 Problem resolved confirmed [facility]-[id number]- Problem Other disease of nasal cavity and sinuses (478.19) 2014 Problem resolved confirmed [facility]-[id number] [id number]- Problem Somnambulism (94361533) Somnambulism (307.46) 2011 Problem resolved confirmed [facility]-[id number]- Problem Stress (147791379) Stress (300.02) 2009 Problem resolved confirmed Michael-[id number]- Problem Thyroid function tests abnormal (540795676) Abnormal thyroid findings (794.5) 2015 Problem resolved confirmed [id number]- Problem Chronic hepatitis C (998158353) Chronic hepatitis C (070.54) 2010 Problem resolved confirmed [id number]- Problem Localized, primary osteoarthritis of the pelvic region and thigh (873202921) Hip DJD (715.15) 2017 Problem resolved confirmed [facility]-[id number]- Problem Photoallergic dermatitis (225807216) Sun photosensitivity (692.72) 2009 Problem resolved confirmed Michael-[id number]- Problem Vitamin D deficiency (86420558) Vitamin D deficiency, unspecified (268.9) 2015 Problem resolved confirmed Michael-[id number]- Problem Herniation of rectum into vagina (680523691) Rectocele (618.04) 2016 Problem resolved confirmed [facility]-98 [id number]- Problem Degenerative disc disease (46749925) Degenerative disc disease (722.6) 2017 Problem resolved confirmed [facility]-98 [id number]- Plan Of Treatment No Information Medical (General) History Surgical History Surgery Date(Month/Year) Tonsillectomy/AdenoidectomyT ubal Ligation cancer left breast removed 5-2005;
--- OUTSIDE RECORDS SUMMARY | 2024-09-20 11:43 | XMS_ITS | Encounter Summary ---
Author Organization [facility] Address [address] [place] [address] Care Team Providers Care White Spooler Name Role Phone Marlon Trejo MD Primary Care Provider Encounter Details Date Type Department Care Team (Latest Contact Info) Description 12/11/2005 Outpatient Historical [facility] [place] [address] [place] [address] Ludwin Cotter MD [address] [place] [address] [place] [address] Chronic Hepatitis C without Mention of Hepatic Coma (CMS/HCC) (Primary Dx) Social History Tobacco Use Types Packs/Day Years Used Date Smoking Tobacco: Never Assessed Comments Unknown Sex and Gender Information Value Date Recorded Sex Assigned at Not on file Legal Sex Female 6: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
--- OUTSIDE RECORDS SUMMARY | 2024-09-20 11:43 | XMS_ITS | Encounter Summary ---
Author Organization [facility] Address [address] [place] [address] Care Team Providers Care Oil Well Shooter Name Role Phone Marlon Trejo MD Primary Care Provider [phone] Encounter Details Date Type Department Care Team (Latest Contact Info) Description 01/26/1999 Outpatient Historical [facility] Deny Castillo Jr., MD [address] [place] [address] Depressive disorder, not elsewhere classified (Primary Dx); Myalgia and myositis, unspecified; Need for prophylactic vaccination with tetanus-diphtheria (Td) Social History Tobacco Use Types Packs/Day Years Used Date Smoking Tobacco: Never Assessed Comments Unknown Sex and Gender Information Value Date Recorded Sex Assigned at Not on file 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
--- OUTSIDE RECORDS SUMMARY | 2024-09-20 11:43 | XMS_ITS | Encounter Summary ---
Author Organization [facility] 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
[2024-09-20 11:44] VITALS: BP 116/54; PULSE 71; RESP 25; TEMP 37.1; O2SAT 98; BMI 19.3
--- OUTSIDE RECORDS SUMMARY | 2024-09-20 11:44 | XMS_ITS | Encounter Summary ---
Author Organization [facility] Address [address] [place] [address] Care Team Providers Care Ammunition Specialist Name Role Phone Marlon Trejo MD Primary Care Provider Encounter Details Date Type Department Care Team (Latest Contact Info) Description 09/12/[address] 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
--- OUTSIDE RECORDS SUMMARY | 2024-09-20 11:44 | XMS_ITS | Encounter Summary ---
Author Organization [facility] Address [address] [place] [address] Care Team Providers Care Property Consultant Name Role Phone Marlon Trejo MD Primary Care Provider Encounter Details Date Type Department Care Team (Latest Contact Info) Description 10/10/2006 Outpatient Historical [facility] Lisa Laughlin FNP NO ADDRESS ON FILE Chronic Hepatitis C without Mention of Hepatic Coma (CMS/HCC) (Primary Dx) Social History Tobacco Use Types Packs/Day Years Used Date Smoking Tobacco: Never Assessed Comments Unknown Sex and Gender Information Value Date Recorded Sex Assigned at Not on file 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
--- NOTE | 2024-09-20 11:50 | XRR_ITS ---
PROCEDURE INFORMATION: Exam: XR Chest Exam date and time: 09/20/2024 11:55 AM Age: 69 years old Clinical indication: Shortness of breath; Prior surgery; Surgery date: 6+ months; Surgery type: Lt mastectomy; Additional info: SOB; Chest discomfort TECHNIQUE: Imaging protocol: Radiologic exam of the chest. Views: 1 view. COMPARISON: CR (CHEST, ) 09/18/2024 9:11 PM FINDINGS: Lungs: There is no consolidation. There is a calcified granuloma in the lateral right upper lung. There is minimal fine reticular opacity in the lung bases suggesting scarring or atelectasis. Pleural spaces: There is no pleural effusion or pneumothorax. Heart/Mediastinum: Cardiomediastinal contours are unremarkable. Bones/joints: Bones are unremarkable. Organs: There are innumerable tiny calcifications in the left upper abdomen suggesting splenic granulomata. XR/XR chest 1V portable [id number] IMPRESSION: No acute findings.
--- NOTE | 2024-09-20 11:50 | ECG_ITS ---
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 Measurements Intervals [place] Rate: 67 P: 66 NC: 178 QRS: 17 QRSD: 86 T: 50 QT: 416 QTc: 441 Interpretive Statements SINUS RHYTHM POSSIBLE RIGHT VENTRICULAR CONDUCTION DELAY [RSR (QR) IN V1/V2] VOLTAGE CRITERIA FOR LVH [MEETS CRITERIA IN ONE OF: R(aVL), S(V1), R(V5), R(V5/V6)+S(V1)] Compared to ECG 09/18/2024 23:19:29 First degree AV block no longer present Electronically Signed On 09-22-2024 10:06:21 CDT by Jose Valerio M.D. [email or web address]
--- NOTE | 2024-09-20 11:56 | ED_ITS ---
HPI - SOB/Dyspnea 2 General: Chief Complaint: Shortness of Breath/Dyspnea Stated Complaint: sob Time Seen by Provider: 09/20/24 11:41 Source: patient Mode of arrival: ambulatory Limitations: no limitations History of Present Illness: HPI Narrative: 69-year-old female states she manage roopa rtness of breath last 3 days she seen here 3 days ago diagnosed with pneumonia and started on antibiotics. States she feels like she just cannot get a deep breath and at times. She denies any severe cough or fever her pulse ox here is 98% on room air in no distress. Denies any history of blood clots Associated symptoms: Deny abdominal pain, chest pain, fever(s), nausea or vomiting Related Data Home Medications ?Medication ?Instructions ?Recorded ?Confirmed meloxicam 15 mg tablet 15 mg PO DAILY 11/04/2309/08 albuterol sulfate 0.63 mg/3 mL 0.63 mg continuous nebu lization 09/20/24 09/20/24 solution for nebulization TID PRN Shortness Of Breath cetirizine 10 mg tablet (Zyrtec) 10 mg PO DAILY 09/20/24 Previous Rx's ?Medication ?Instructions ?Recorded BRA WITH LEFT PROSTHESIS #2 ea 12/23/19 azithromycin 250 mg tablet See Rx Instructions PO .COM PLEX #6 09/18/24 tabs cefdinir 300 mg capsule 300 mg PO BID #14 caps 09/18 Allergies Allergy/AdvReac Type Severity Reaction Status Date / Time indomethacin AdvReac Mild Unknown Verified 09/20/24 12:02 lorazepam (From Ativan) AdvReac Mild ADR-Confusi Verified 09/20/24 12:02 on pregabalin (From Lyrica) AdvReac Mild Unknown Verified 09/20/24 12:02 trazodone AdvReac Mild Unknown Verified 09/20/24 12:02 Review of Systems 2 Const: Denies: fever(s), chills, body aches or change in appetite ENMT: Denies: throat pain or dental pain Card: Denies: chest pain Resp: Reports: dyspnea GI: Denies: abdominal pain, nausea, vomiting or diarrhea Musc: Denies: neck pain or back pain Skin/Breast: Denies: rash Neuro: Denies: headache(s) PFSH ED 2 PFSH: Medical History DDD (degenerative disc disease), cervical Depression Chronic diarrhea GERD (gastroesophageal reflux disease) Breast cancer Essential hypertension Hyperlipidemia Hepatitis C Surgical History H/O: hysterectomy History of tonsillectomy History of mastectomy, total H/O tubal ligation History of thyroid surgery Family History Other Cancer Social History Smoking and tobacco/nicotine status: current every day tobacco/nicotine user cigarettes Packs smoked per day: 0.5 Years cigarettes smoked: 25 Second hand smoke exposure: Yes Alcohol intake: never Substance/Drug Use: never Lives independently: Yes Household members: significant other and family Marital status: Current occupational status: disabled Do you think of yourself as: Straight/Heterosexual Current gender identity: Female Physical Exam 2 Const: COMMON NORMALS: no acute distress, patient oriented x3 and healthy appearing HENMT: COMMON NORMALS: normocephalic and atraumatic HEAD & SCALP: n ormocephalic and atraumatic Neck/C-Spine: COMMON NORMALS: full ROM and supple Chest: COMMONS NORMALS: normal inspection of the chest Resp: COMMON NORMALS: normal respiratory effort, No retractions, No use of accessory muscles and clear to auscultation bilaterally AUSCULTATION: clear to auscultation bilaterally Cardio: COMMON NORMALS: regular rate, regular rhythm and No murmurs present (Cardio) RATE: regular rate RHYTHM: regular rhythm Extremity: COMMON NORMALS: normal to inspection and full ROM Neuro: COMMON NORMALS: patient oriented x3, moves all extremities and no focal motor deficits Psych: COMMON NORMALS: mental status grossly normal, Normal thought process present and cooperative THOUGHT PROCESS: Normal thought process present Skin: COMMON NORMALS: no rashes or lesions noted and no wounds GENERAL SKIN EXAM: no rashes or lesions noted Course 2 Vital Signs: Vital signs: Vital Signs Temperature 98.7 F 09/20/24 11:44 Pulse Rate 73 09/20/24 13:37 Respiratory Rate 18 09/20/24 13:37 Blood Pressure 125/61 09/20/24 13:37 Pulse Oximetry 98 09/20/24 13:37 Oxygen Delivery Me thod Room Air 09/20/24 11:44 MDM - SOB/Dyspnea Medical Decision Making Patient presents here with shortness of breath CT showed no signs of PE well- appearing here did go over CT findings with her she stable for discharge follow- up with PCP return if worsening pulse ox here has been normal Medical Records I reviewed the patient's medical records. Lab Data I reviewed the patient's lab results. 09/20/24 11:50 09/20/24 12:35 Labs/Radiology: Radiology Impressions Chest X-Ray 09/20/24 11:50 IMPRESSION: No acute findings. Chest CTA 09/20/24 13:29 IMPRESSION: 1. No pulmonary embolism. 2. Focal subpleural consolidation in the anterior inferior left upper lobe. Nonspecific. Possible atelectasis, infection, or less likely neoplasm. Recommend follow-up to resolution. Laboratory Results WBC 5.57 10^3/uL (3.29-11.43) 09/20/24 11:50 RBC 4.29 10^6/uL (3.85-5.65) 09/20/24 11:50 Hgb 13.30 g/dL (11.27-16.99) 09/20/24 11:50 Hct 39.8 % (36-47) 09/20/24 11:50 MCV 92.8 fl (85-98) 09/20/24 11:50 MCH 31.0 pg (27-33) 09/20/24 11:50 MCHC 33.4 g/dL (30-55) 09/20/24 11:50 RDW 15.5 % (12.1-15.1) H 09/20/24 11:50 Plt Count 226 10^3/cmm (157-399) 09/20/24 11:50 MPV 10.3 fL (7.4-10.4) 09/20/24 11:50 Neut % (Auto) 74.7 % 09/20/24 11:50 Lymph % (Auto) 17.4 % 09/20/24 11:50 [place] % (Auto) 4.1 % 09/20/24 11:50 Eos % (Auto) 2.9 % 09/20/24 11:50 Baso % (Auto) 0.5 % 09/20/24 11:50 Neut # (Auto) 4.16 10^3/uL (1.8-7.7) 09/20/24 11:50 Lymph # (Auto) 1.0 10^3/uL (0.8-4.8) 09/20/24 11:50 [place] # (Auto) 0.2 10^3/uL (0.2-0.9) 09/20/24 11:50 Eos # (Auto) 0.2 10^3/uL (0.0-0.8) 09/20/24 11:50 Baso # (Auto) 0.0 10^3/uL (0.0-0.1) 09/20/24 11:50 Nucleated RBC % (auto) 0 % 09/20/24 11:50 Nucleated RBCs # 0.0 /100WBC 09/20/24 11:50 D-Dimer 4.18 ug/mLFEU (0-0.59) H 09/20/24 11:50 Sodium 136 mmol/L (136-145) 09/20/24 12:35 Potassium 3.4 mmol/L (3.5-5.1) L 09/20/24 12:35 Chloride 100 mmol/L (98-107) 09/20/24 12:35 Carbon Dioxide 22 mmol/L (22-29) 09/20/24 12:35 Anion Gap 17.4 (5-19) 09/20/24 12:35 BUN 12 mg/dL (8-23) 09/20/24 12:35 Creatinine 0.5 mg/dL (0.5-0.9) 09/20/24 12:35 GFR Calculation 122.0 mL/min (90-130) 09/20/24 12:35 Glucose 94 mg/dL (65-115) 09/20/24 12:35 Calculated Osmolality 282 mOsm/kg (285-295) L 09/20/24 12:35 Calcium 8.3 mg/dL (8.5-10.5) L 09/20/24 12:35 Total Bilirubin 0.2 mg/dL (0.15-1.2) 09/20/24 12:35 AST 26 U/L (0-32) 09/20/24 12:35 ALT 15 U/L (0-33) 09/20/24 12:35 Alkaline Phosphatase 61 U/L (35-105) 09/20/24 12:35 Troponin T Baseline 10 ng/L (0-10) 09/20/24 12:35 NT-Pro-B Natriuret Pep 805 pg/mL (0-125) H 09/20/24 12:35 Total Protein 5.9 g/dL (6.6-8.7) L 09/20/24 12:35 Albumin 3.4 g/dL (3.5-5.2) L 09/20/24 12:35 Globulin 2.5 g/dL (1.3-4.6) 09/20/24 12:35 All radiology interpretation(s) finalized by discharge EKG Data EKG 1: I personally reviewed and interpreted this EKG as follows: EKG Interpretation Date: 09/20/24 EKG interpretation time: 11:45 Interpretation: nsr hr [address] elevation qrs 86 qtc 432 Discharge Plan Discharge Patient Disposition: Home Clinical Impression: Shortness of breath Condition: Stable Prescriptions: No Action (DME) BRA WITH LEFT PROSTHESIS See Rx Instructions .Route .MEDSUPPLY Qty: 2 1RF Rx Instructions: As directed meloxicam 15 mg tablet 15 mg PO DAILY azithromycin 250 mg tablet See Rx Instructions .ROUTE .COMPLEX Qty: 6 0RF Rx Instructions: For 250 mg dose pack: take 500 mg today (day 1), then 250 mg for 4 days (days 2-5) cefdinir 300 mg capsule 300 mg PO BID Qty: 14 0RF albuterol sulfate 0.63 mg/3 mL solution for nebulization 0.63 mg continuous nebulization TID PRN (Reason: Shortness Of Breath) cetirizine [Zyrtec] 10 mg Tablet 10 mg PO DAILY Discharge Orders: Discharge ED (Routine); Ordered 09/20/24 Ordered By: Dylan Bear Referrals: Robert Alonzo MD [Primary Care Provider, Family Practice] - 4-7 days Discharge Diet: Advance as tolerated Discharge Activity: Resume usual activity Patient Instructions: Shortness of Breath (ED) Print Language: Urdu Coding Level of Care Code ED Resourcing Advisor for Xavi Malhotra
[2024-09-20 12:04] LABS: Hematocrit 39.8 % (36-47); Hemoglobin 13.30 g/dL (11.27-16.99); Mean Corpuscular HGB Conc 33.4 g/dL (30-55); Mean Corpuscular Hemoglobin 31.0 pg (27-33); Mean Corpuscular Volume 92.8 fl (85-98); Nucleated Red Blood Cells % 0 %; Platelet Count 226 10^3/cmm (157-399); Red Blood Count 4.29 10^6/uL (3.85-5.65); White Blood Count 5.57 10^3/uL (3.29-11.43)
[2024-09-20 13:23] LABS: Alanine Aminotransferase 15 U/L (0-33); Albumin Level 3.4 g/dL (3.5-5.2); Alkaline Phosphatase 61 U/L (35-105); Anion Gap 17.4 (5-19); Aspartate Amino Transferase 26 U/L (0-32); Blood Urea Nitrogen 12 mg/dL (8-23); Calcium 8.3 mg/dL (8.5-10.5); Carbon Dioxide 22 mmol/L (22-29); Chloride 100 mmol/L (98-107); Creatinine Clr Calc Pharmacy 57.0692; Globulin 2.5 g/dL (1.3-4.6); Glucose 94 mg/dL (65-115); NT Pro B Type Natriuretic Pept 805 pg/mL (0-125); Osmolality Calculated 282 mOsm/kg (285-295); Potassium 3.4 mmol/L (3.5-5.1); Sodium 136 mmol/L (136-145); Total Protein 5.9 g/dL (6.6-8.7)
--- NOTE | 2024-09-20 13:29 | CTR_ITS ---
PROCEDURE INFORMATION: Exam: CTA Chest With Contrast Exam date and time: 09/20/2024 1:53 PM Age: 69 years old Clinical indication: Shortness of breath; HX of breast cancer; Additional info: SOB TECHNIQUE: Imaging protocol: Computed tomographic angiography of the chest with contrast. Exam focused on the arteries. 3D rendering (Not supervised by radiologist): MIP and/or 3D reconstructed images were created by the technologist. Radiation optimization: All CT scans at this facility use at least one of these dose optimization techniques: automated exposure control; mA and/or kV adjustment per patient size (includes targeted exams where dose is matched to clinical indication); or iterative reconstruction. Contrast material: OMNIPAQUE 350; Contrast volume: 81 ml; Contrast route: INTRAVENOUS (IV); COMPARISON: CT lung screening [id number] 10/28/2023 10:44 AM RADIATION DOSE METRICS: Total DLP (mGy-cm): 194.6 FINDINGS: Pulmonary arteries: The pulmonary arteries are adequately opacified for evaluation to the subsegmental level. There is no filling defect to suggest embolism. The pulmonary arteries are adequately opacified for evaluation to the subsegmental level. There is no filling defect to suggest embolism. Aorta: There is mild aortic atherosclerotic disease. Lungs: There is a benign calcified granuloma in the right upper lobe. There is focal irregular dense consolidation in the anterior inferior left upper lobe. Pleural spaces: There is no pleural effusion or pneumothorax. Heart: Heart size is normal. There is no pericardial effusion. Coronary arteries: There is moderate coronary artery calcification. Lymph nodes: There is no mediastinal or hilar lymphadenopathy. There are small calcified mediastinal lymph nodes. Liver: There are numerous small calcified granulomas in the liver. Spleen: There are numerous small calcified granulomas in the spleen. Adrenal glands: There is an intermediate density left adrenal nodule measuring 21 x 17 mm. The nodule is stable since 10/28/2023. No follow-up imaging is recommended. Bones/joints: There is mild degenerative disease at both shoulders. No acute osseous findings. Soft tissues: The extrathoracic soft tissues are unremarkable. CT/CT angio chest PE protcl [id number] IMPRESSION: 1. No pulmonary embolism. 2. Focal subpleural consolidation in the anterior inferior left upper lobe. Nonspecific. Possible atelectasis, infection, or less likely neoplasm. Recommend follow-up to resolution.
[2024-09-20 13:37] VITALS: BP 125/61; PULSE 73; RESP 18; O2SAT 98
[2024-09-20 14:00] LABS: Troponin(5th) Baseline 10 ng/L (0-10)
[2024-09-20 14:30] VITALS: BP 131/68; PULSE 89; RESP 16; O2SAT 96
[2024-09-20 15:30] VITALS: BP 138/47; PULSE 81; O2SAT 93
[2024-09-20 15:34] LABS: Troponin 5 2HR 8.56 ng/L (0-10); Troponin 5 2HR Delta -1.44 ABS# (0-10)
[2024-09-20 16:00] VITALS: BP 138/60; PULSE 86; O2SAT 100
== END 2024-09-20 16:00 | disposition home or self-care (01) ==
PROVIDERS: Emergency Provider Emergency Medicine; PCP Family Medicine
DX: R06.02 Shortness of breath (principal); F17.210 Nicotine dependence, cigarettes, uncomplicated; E78.5 Hyperlipidemia, unspecified; I10 Essential (primary) hypertension; Z85.3 Personal history of malignant neoplasm of breast
CPT/HCPCS: 36415; 71045; 71275; 80053; 83880; 84484; 85025; 85378; 93005; 96374; 99285; J1885

== ENCOUNTER → 2024-11-11 13:39 | Outpatient (BNVA) | payer MEDICARE, MEDICAID, SELFPAY | PROVIDERS: PCP Family Medicine; Visit Provider Specialist | DX: M25.811 Other specified joint disorders, right shoulder (principal); Z71.89 Other specified counseling | CPT/HCPCS: 20610; J1100; J2795; J3301; J9999 ==

== ENCOUNTER → 2024-12-04 09:32 | Outpatient (BNVA) | payer MEDICARE, MEDICAID, SELFPAY | PROVIDERS: PCP Family Medicine; Visit Provider Specialist | DX: M19.012 Primary osteoarthritis, left shoulder (principal) | CPT/HCPCS: 20610; J1100; J2795; J3301; J9999 ==

== ENCOUNTER → 2025-02-26 09:18 | Outpatient (BNVA) | payer MEDICARE, MEDICAID, SELFPAY | PROVIDERS: PCP Family Medicine; Visit Provider Specialist | DX: M19.011 Primary osteoarthritis, right shoulder (principal); M19.012 Primary osteoarthritis, left shoulder | CPT/HCPCS: 20610; J1100; J2795; J3301; J9999 ==